=== PATIENT | male | born 1955 | race Caucasian/White ===

== ENCOUNTER 2021-12-24 08:56 | Inpatient (IN) | payer OTHER ==
--- NOTE | 2021-12-24 10:18 | RAD REPORT ---
EXAM DESCRIPTION: RAD - Hip Left 2 View - 12/24/2021 10:07 am CLINICAL HISTORY: Left hip pain status post injury FINDINGS: Increased density is present within the subcapital femur. It is uncertain if this indicate s an impaction fracture or related to degenerative changes. MRI is recommended. No dislocation Bones are osteoporotic
--- NOTE | 2021-12-24 15:22 | ER ---
Nurse's Notes [facility] Name: Luis Sarmiento Age: 66 yrs Sex: Male : 1955 Arrival Date: 12/24/2021 Time: 08:57 Bed 19 Private MD: Diagnosis: Intertrochanteric fracture - left Presentation: 12/24 09:29 Chief complaint: Patient states: left hip pain s/p fall from standing on Monday iw night. 09:29 Acuity: SANDHYA 4 iw 09:30 Coronavirus screen: At this time, the client does not indicate any symptoms associated iw with coronavirus-19. Ebola Screen: Patient negative for fever greater than or equal to 101.5 degrees Fahrenheit, and additional compatible Ebola Virus Disease symptoms Patient denies exposure to infectious person. Patient denies travel to an Ebola-affected area in the 21 days before illness onset. No symptoms or risks identified at this time. Initial Sepsis Screen: Does the patient meet any 2 criteria? No. Patient's initial sepsis screen is negative. Does the patient have a suspected source of infection? No. Patient's initial sepsis screen is negative. Risk Assessment: Do you want to hurt yourself or someone else? Patient reports no desire to harm self or others. Onset of symptoms was December 22, 2021. 09:30 Method Of Arrival: Wheelchair iw Triage Assessment: 09:33 General: Appears in no apparent distress. Behavior is calm, cooperative. bell Historical: - Allergies: 09:30 No Known Allergies; iw - Home Meds: 09:37 aspirin 325 mg Oral TbEC 1 tab once daily [Active]; bell - PMHx: 09:30 None; iw - PSHx: 09:30 None; iw - Immunization history:: Adult Immunizations up to date. - Social history:: Smoking status: Patient reports the use of cigarette tobacco products, smokes one pack cigarettes per day. Smoking status: Patient denies any tobacco usage or history of. Screenin:32 Abuse screen: Denies threats or abuse. Denies injuries from another. Nutritional bell screening: No deficits noted. Tuberculosis screening: No symptoms or risk factors identified. Fall Risk Assessment: 09:32 Pain: Complains of pain in left hip and left leg. Musculoskeletal: Reports pain in bell pelvis Pain is 7 out of 10 on a pain scale. 19:17 General: Appears uncomfortable, slender, well groomed, well developed, well nourished, tw5 Behavior is calm, cooperative, appropriate for age. 22:05 Pain: Complains of pain in left hip Pain does not radiate. Pain currently is 8 out of tw5 10 on a pain scale. Quality of pain is described as sharp, Pain began 2-3 days ago. Neuro: Level of Consciousness is awake, alert, obeys commands, Oriented to person, place, time, situation, Appropriate for age Fishing Rod Marker are equal bilaterally Weakness in left leg(s) Gait is unsteady, Speech is normal, Facial symmetry appears normal, Pupils are PERRLA. Cardiovascular: Capillary refill < 3 seconds is brisk in bilateral fingers toes. Respiratory: Airway is patent Respiratory effort is even, unlabored, Respiratory pattern is regular, symmetrical, Breath sounds are clear bilaterally. GI: No deficits noted. No signs and/or symptoms were reported involving the gastrointestinal system. : No deficits noted. No signs and/or symptoms were reported regarding the genitourinary system. EENT: No deficits noted. No signs and/or symptoms were reported regarding the EENT system. Derm: No deficits noted. No signs and/or symptoms reported regarding the dermatologic system. Vital Signs: 09:33 BP 164 / 83; Pulse 75; Resp 18; Temp 97.9(O); Pulse Ox 98% ; Weight 79.38 kg; Height 5 bell ft. 11 in. (180.34 cm); 09:34 BP 173 / 84; Pulse 77; Resp 16; Pulse Ox 100% on R/A; iw 11:24 BP 146 / 83; Pulse 66; Resp 18; Pulse Ox 95% on R/A; bell 18:46 BP 168 / 82; Pulse 69; Resp 18; Pulse Ox 95% on R/A; bell 09:33 Body Mass Index 24.41 (79.38 kg, 180.34 cm) bell ED Course: 08:57 Patient arrived in ED. am2 09:00 Juanita Castellon FNP-C is PHCP. kb 09:00 Axel Barrett MD is Attending Physician. kb 09:29 Triage completed. iw 09:31 Arm band placed on. iw 09:32 Patient has correct armband on for positive identification. Bed in low position. bell 09:32 No provider procedures requiring assistance completed. bell 10:09 Hip Left 2 View XRAY In Process Unspecified. EDMS 12:47 Sera Nguyen, RN is Primary Nurse. bell 14:48 Hip Left Wo Cont In Process Unspecified. EDMS 15:20 Thomas Flores MD is Hospitalizing Provider. kb 15:20 Darci Houser MD is Hospitalizing Provider. kb 15:55 Chest Single View XRAY In Process Unspecified. EDMS 17:41 Inserted saline lock: 20 gauge in left antecubital area, using aseptic technique. bell Administered Medications: No medications were administered Outcome: 15:21 Decision to Hospitalize by Provider. kb 21:57 Admitted to Med/surg accompanied by nurse, via wheelchair, room 215, with chart, Report tw5 called to ROBBIE Smiley 21:57 Condition: stable 21:57 Instructed on the need for admit. 23:16 Patient left the ED. tw5 Signatures: Dispatcher [employer] EDMS Juanita Castellon, MEDICAL OFFICE SUPERVISOR-C MEDICAL OFFICE SUPERVISOR-Ckb Melida Arora RN RN Enid Haq Tiffany tw5 Sera Nguyen RN RN Liseth Melendez tk1 Corrections: (The following items were deleted from the chart) 09:38 09:30 Home Meds: None; [facility] 22:07 19:17 General: Appears tk1 tw5
--- NOTE | 2021-12-24 15:22 | EDPHYS ---
Physician Documentation [facility] Name: Luis Sarmiento Age: 66 yrs Sex: Male : 1955 Arrival Date: 12/24/2021 Time: 08:57 Bed 19 Private MD: ED Physician Axel Barrett HPI: 12/24 10:42 This 66 yrs old Male presents to ER via Wheelchair with complaints of Fall Injury, Hip kb Pain. 10:42 Details of fall: The patient fell from an upright position, while walking. Onset: The kb symptoms/episode began/occurred 2 day(s) ago. Associated injuries: The patient sustained left hip, painful injury. Severity of symptoms: At their worst the symptoms were moderate, in the emergency department the symptoms are unchanged. The patient has not experienced similar symptoms in the past. The patient has not recently seen a physician. 10:43 Pt states he tripped and fell when taking the trash out 2 days ago. States he has had kb pain to left hip since then. Historical: - Allergies: 09:30 No Known Allergies; iw - Home Meds: 09:37 aspirin 325 mg Oral TbEC 1 tab once daily [Active]; bell - PMHx: 09:30 None; iw - PSHx: 09:30 None; iw - Immunization history:: Adult Immunizations up to date. - Social history:: Smoking status: Patient reports the use of cigarette tobacco products, smokes one pack cigarettes per day. Smoking status: Patient denies any tobacco usage or history of. ROS: 10:40 Constitutional: Negative for fever, chills, and weight loss. kb 10:40 MS/extremity: Positive for pain, of the left hip. 10:40 All other systems are negative. Exam: 10:41 Constitutional: This is a well developed, well nourished patient who is awake, alert, kb and in no acute distress. Head/Face: Normocephalic, atraumatic. ENT: Moist Mucous membranes Respiratory: Respirations even and unlabored. No increased work of breathing. Talking in full sentences Abdomen/GI: Soft, non-tender. No distention Skin: Warm, dry with normal turgor. Normal color. Neuro: Awake and alert, GCS 15, oriented to person, place, time, and situation. Moves all extremities. Normal gait. Psych: Awake, alert, with orientation to person, place and time. Behavior, mood, and affect are within normal limits. 10:41 Musculoskeletal/extremity: Extremities: grossly normal except: noted in the left hip: pain, tenderness, ROM: limited active range of motion due to pain, Circulation is intact in all extremities. Sensation intact. Weight bearing: can bear weight with assistance only, uses cane. Vital Signs: 09:33 BP 164 / 83; Pulse 75; Resp 18; Temp 97.9(O); Pulse Ox 98% ; Weight 79.38 kg; Height 5 bell ft. 11 in. (180.34 cm); 09:34 BP 173 / 84; Pulse 77; Resp 16; Pulse Ox 100% on R/A; iw 11:24 BP 146 / 83; Pulse 66; Resp 18; Pulse Ox 95% on R/A; bell 18:46 BP 168 / 82; Pulse 69; Resp 18; Pulse Ox 95% on R/A; bell 09:33 Body Mass Index 24.41 (79.38 kg, 180.34 cm) bell MDM: 09:21 Patient medically screened. kb 10:40 Data reviewed: vital signs, nurses notes. Data interpreted: Pulse oximetry: on room air kb is 100 %. Interpretation: normal. 15:18 Counseling: I had a detailed discussion with the patient and/or guardian regarding: the kb historical points, exam findings, and any diagnostic results supporting the discharge/admit diagnosis, radiology results, the need for further work-up and treatment in the hospital. Physician consultation: Thomas Flores MD was contacted at 15:18, regarding consult, patient's condition, and will see patient in inpatient room. 15:18 Physician consultation: Darci Houser MD was contacted at 15:19, regarding admission, kb to the medical/surgical unit. patient's condition, and will see patient in ED. 12/24 15:18 Order name: CBC with Diff; Complete Time: 15:50 kb 12/24 15:18 Order name: Basic Metabolic Panel; Complete Time: 16:02 kb 12/24 15:18 Order name: COVID-19 SARS RT PCR (Document "Date of Onset" if Symptomatic); Complete kb Time: 17:13 12/24 16:23 Order name: CBC with Automated Diff EDMS 12/24 16:23 Order name: CBC with Automated Diff EDMS 12/24 16:23 Order name: Comprehensive Metabolic Panel EDMS 12/24 09:24 Order name: Hip Left 2 View XRAY; Complete Time: 10:22 kb 12/24 10:26 Order name: Hip Left Wo Cont; Complete Time: 19:22 EDMS 12/24 15:18 Order name: EKG; Complete Time: 15:18 kb 12/24 15:18 Order name: Chest Single View XRAY; Complete Time: 17:48 kb 12/24 16:23 Order name: Heart Healthy; Complete Time: 18:13 EDMS 12/24 16:23 Order name: Comprehensive Metabolic Panel EDMS 12/24 16:25 Order name: CONS Physician Consult EDMS 12/24 16:25 Order name: Magnesium; Complete Time: 19:06 EDMS 12/24 15:18 Order name: IV Start; Complete Time: 15:36 kb 12/24 15:18 Order name: EKG - Nurse/Tech; Complete Time: 16:34 kb Administered Medications: No medications were administered Disposition: 12/25 09:02 Co-signature as Attending Physician, Axel Barrett MD. rn Disposition Summary: 12/24/21 15:21 Hospitalization Ordered Hospitalization Status: Inpatient Admission kb Provider: Darci Houser Location: Telemetry/MedSurg (Inpatient) kb Condition: Stable kb Problem: new kb Symptoms: are unchanged kb Bed/Room Type: Standard Room Assignment: [facility](12/24/21 21:19) Diagnosis - Intertrochanteric fracture - left kb Forms: - Medication Reconciliation Form kb - SBAR form kb Signatures: Dispatcher [employer] [facility] Juanita Castellon, RHEA-C STATION DETECTIVE-CkMelida Thomas, RN Axel Jones MD MD rn Garcia, Cindy, RN RN cg Au-Stager, Heather, RN RN ha Corrections: (The following items were deleted from the chart) 12/24 09:38 09:30 Home Meds: None; bell 21:19 15:21 kb cg
[2021-12-24 15:42] LABS: Absolute Lymphocytes (CBC) 1.6 K/uL (0.7-4.9); Hematocrit 44.7 % (39.6-49.0); MPV 8.1 fL (7.6-11.3)
[2021-12-24 15:54] LABS: BUN Blood Urea Nitrogen 8 mg/dL (7-18); Bicarbonate 28 mmol/L (21-32); Glucose Level 94 mg/dL (74-106); Potassium 4.5 mmol/L (3.5-5.1); Sodium Level 137 mmol/L (136-145)
[2021-12-24] MEDS ORDERED: ALBUTEROL 2.5 MG/3 ML NEB SOL NEB PRN (16:06)
[2021-12-24] MEDS ORDERED: ACETAMINOPHEN 500 MG TAB PO PRN (16:06)
[2021-12-24] MEDS ORDERED: ONDANSETRON 4 MG/2 ML VIAL IV PRN (16:06)
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
[2021-12-24] MEDS ORDERED: HYDRALAZINE HCL 20 MG/ML VIAL IV PRN (16:19)
[2021-12-24] MEDS ORDERED: LORazepam 2 MG/ML VIAL IV PRN (16:20)
--- NOTE | 2021-12-24 17:43 | RAD REPORT ---
EXAM DESCRIPTION: RAD - Chest Single View - 12/24/2021 3:53 pm CLINICAL HISTORY: preopchest exam, hip fracture pending surgical repair COMPARISON: September 2013 TECHNIQUE: AP portable chest image was obtained 12/24/2021 3:53 pm . FINDINGS: Scattered fibrotic lung changes are present with no worrisome mass and no acute infiltrate , failure or volume overload finding. Two small nodular foci are seen symmetrically positioned over t he lower chest believed to be nipple shadows. Heart and vasculature are normal. No measurable pleural effusion and no pneumothorax. No acute bony abnormality seen. No acute aortic findings suspected. IMPRESSION: Chronic interstitial pattern with no acute cardiopulmonary finding identified.
--- NOTE | 2021-12-24 19:15 | RAD REPORT ---
EXAM DESCRIPTION: MRI - Hip Left Wo Cont - 12/24/2021 6:27 pm CLINICAL HISTORY: r/o fx COMPARISON: Hip Left 2 View dated 12/24/2021 TECHNIQUE: Multiplanar imaging of the left hip joint and pelvis performed using T1 weighted, T2 STIR , proton density and T2 fat sat sequencing. FINDINGS: Serpiginous fracture lines traverse the greater trochanter in a predominantly craniocaudal dimension. There is cortical disruption present but no significant distraction along the fracture pl anes. Fracture lines that extend into the central portion of the intertrochanteric region. Thin serpi ginous fracture lines extend anteriorly in their intertrochanteric region to the anterior cortex and posterior cortex. Fracture of the femoral neck or subcapital region is not identifiable. Lesser trochanter remains enriqueta ched to the femur. No pathologic changes. Contusion and edema changes are seen in the soft tissues ad jacent to the greater trochanter. Degenerative spurring seen along the articular margins of the acetabulum and femoral head. No joint e ffusion. Fracture is not seen in the imaged portions of the pelvis. Signal artifact is present related to right femur surgical hardware. Final written report was delayed due to malfunctioning of the PACs IT systems. Imaging was reviewed o jaron the MRI suite monitor with preliminary verbal report telephoned to the referring clinician at the time of the study as well as reviewed with the consulting orthopedist. IMPRESSION: Left greater trochanter and intertrochanteric fractures as detailed.
[2021-12-24] MEDS ORDERED: FAMOTIDINE 20 MG TAB ONE (20:50)
[2021-12-24] MEDS ORDERED: HEPARIN 5000 UNIT/ML 1 ML VIAL ONE (20:50)
[2021-12-24] MEDS ORDERED: NA CHLORIDE 0.9% 1,000 ML ONE (20:50)
[2021-12-24] MEDS: HEPARIN 5000 UNIT/ML 1 ML VIAL SQ SCH ×2 (20:55→23:56)
[2021-12-24] MEDS: NA CHLORIDE 0.9% 1,000 ML IV SCH (20:55)
[2021-12-24] MEDS: FAMOTIDINE 20 MG TAB PO SCH (21:00)
[2021-12-24] MEDS: Oxycodone HCl/Acetaminophen 1 TAB TAB PO PRN (21:00)
[2021-12-24] MEDS ORDERED: Oxycodone HCl/Acetaminophen 1 TAB TAB ONE (21:06)
[2021-12-24] MEDS: MORPHINE 4 MG/ML SYR IV PRN (23:52)
[2021-12-25 02:54] VITALS: BMI 24.4
[2021-12-25] MEDS: MORPHINE 4 MG/ML SYR IV PRN ×3 (04:24→20:05)
--- NOTE | 2021-12-25 04:53 | CON ---
Date of Consultation: 12/24/2021 History Of Present Illness: This is my first time seeing this patient to my knowledge. He is a 66-y ear-old male, who unfortunately fell on Monday injuring his left hip. He had significant pain whe n that happened and he has had persistent pain. He has tried to walk around a little bit with very s ignificant pain. It was hurting so much that he finally decided to come to the emergency department. When he came to the emergency department, he was seen and examined by the emergency room physician and had x-rays, which demonstrated some arthritic changes of the left hip and the initial x-ray marixa watson said there is a possibility he could have a small impaction of the femoral neck. He was therefore sent for MR, which demonstrates a fairly obvious greater trochanteric fracture on MR, however there does appear to be fracture lines, which proceed more medially, not actually crossing across the entir e femur to the lesser trochanter, but definitely more extensive than a simple greater trochanteric fr acture. Assessment And Plan: A 66-year-old male now with a left hip with arthritis with a greater trochanter ic fracture, which appears to extend in the intertrochanteric region. I discussed this situation wit h both the patient and the family and at this time we will proceed with closed reduction, intramedull amara delfino fixation most likely tomorrow. He will be admitted to the hospitalist and will need to be me dically evaluated. He was getting an EKG while I was in the room. I will speak with the [place] [facility]. Risks, benefits, and alternatives of this procedure have been discussed with him and his fami ly in detail. They state they understand things as presented. /CARLOS Voice ID: [id number] Report ID: [id number]
[2021-12-25] MEDS: Oxycodone HCl/Acetaminophen 1 TAB TAB PO PRN ×2 (05:39→12:14)
[2021-12-25] MEDS: NA CHLORIDE 0.9% 1,000 ML IV SCH (06:05)
[2021-12-25 06:08] LABS: Absolute Lymphocytes (CBC) 1.4 K/uL (0.7-4.9); Hematocrit 42.4 % (39.6-49.0); Lymphocytes % 23.9 % (15.3-44.8); MPV 8.6 fL (7.6-11.3); RBC Red Blood Cell Count 4.36 M/uL (4.33-5.43)
--- NOTE | 2021-12-25 06:12 | P.PN ---
Date of Service: 12/25/21 Subjective: s/p surgery, in severe pain denies SOB, no n/v, no abd pain passing flatus ROS: 10 point ROS as noted above, otherwise negative Physical exam GEN: Alert, oriented, uncomfortable appearing HEENT: Normal conjunctiva, sclera anicteric CV: Regular rate and rhythm, no edema Pulm: Non-labored respirations on room air ABD: Soft, nontender, nondistended MSK: LLE: Surgical dressing c/d/i, no palpable fluid collection/hematoma, no ecchymosis Neuro: Normal speech, normal affect Problem List Left femoral neck fracture after fall Chronic tobacco use Chronic alcohol use s/p ORIF this morning without complication post-operatively, patient reports 10/10 pain in thigh Denies nausea/vomiting With elevated blood pressure, secondary to pain Lab work otherwise unremarkable Pain medication as needed Resume diet Discussed with Ortho, okay to start DVT prophylaxis daniella Xarelto ordered PT consulted VTE: Xarelto, DVT prophylaxis Code: Full Dispo: Home, anticipate tomorrow Time Spent Managing Pts Care (In Minutes): 35
[2021-12-25 06:15] LABS: ALT/SGPT 98 U/L (12-78); AST/SGOT 93 U/L (15-37); Albumin 3.2 g/dL (3.4-5.0); Alkaline Phosphatase 99 U/L (45-117); BUN Blood Urea Nitrogen 9 mg/dL (7-18); Bicarbonate 28 mmol/L (21-32); Bilirubin Total 1.1 mg/dL (0.2-1.0); Glucose Level 91 mg/dL (74-106); Potassium 4.3 mmol/L (3.5-5.1); Protein, Total 7.3 g/dL (6.4-8.2); Sodium Level 137 mmol/L (136-145)
[2021-12-25] MEDS ORDERED: SUCCINYLCHOLINE 20 MG/ML (10 ML) IV ONE (07:56)
[2021-12-25] MEDS ORDERED: FENTANYL CITR 100 MCG/2 ML ONE (07:58)
[2021-12-25] MEDS ORDERED: propofoL 200 MG/20 ML VIAL IV ONE (07:58)
[2021-12-25] MEDS ORDERED: MIDAZOLAM HCL 2 MG/2 ML INJ ONE (07:58)
[2021-12-25] MEDS ORDERED: CEFAZOLIN SODIUM 1 GM/VIAL ONE (07:59)
[2021-12-25] MEDS ORDERED: TRANEXAMIC ACID 1,000 MG in NA CHLORIDE 0.9% 50 ML IV ONE ×4 (08:00)
[2021-12-25] MEDS ORDERED: GLYCOPYRROLATE 0.2 MG/ML SYR ONE (08:51)
[2021-12-25] MEDS: HEPARIN 5000 UNIT/ML 1 ML VIAL SQ SCH (09:00)
[2021-12-25] MEDS: MEPERIDINE HCL 25 MG/ML SYR ONE ×2 (09:20→09:45)
--- NOTE | 2021-12-25 09:23 | P.BOP ---
Preoperative diagnosis: left proximal femur fracture Postoperative diagnosis: same Primary procedure: Bebo left femur Estimated blood loss: 20 ccs Anesthesia: General Complications: None Transferred to: Recovery Room Condition: Good
[2021-12-25] MEDS: FENTANYL CITR 100 MCG/2 ML ONE ×3 (09:25→09:55)
[2021-12-25] MEDS ORDERED: ONDANSETRON 4 MG/2 ML VIAL ONE (09:27)
[2021-12-25 09:54] VITALS: O2SAT 97
--- NOTE | 2021-12-25 10:20 | OP ---
Date of Procedure: 12/25/2021 Surgeon: Thomas Flores MD Postoperative Diagnosis: Left proximal femur fracture. Postoperative Diagnosis: Left proximal femur fracture. Procedure Performed: Left proximal femur fracture closed reduction with intramedullary delfino fixation using the Biomet AFFIXUS nail. Estimated Blood Loss: 20 cc. Complications: There were no complications. No pathology was sent. Indications For Operation: Mr. Sarmiento is a 66-year-old male who unfortunately fell injuring his lef t hip. He attempted to treat this at home; however, his pain never decreased and he really was not a ble to bear any weight. He was brought to the emergency department where x-rays were taken, which de monstrate some arthritic changes of the hip as well as some rim osteophytes, which Radiology could re present a nondisplaced fracture. Therefore, an MRI was obtained, which did not reveal a femoral neck fracture, but did not reveal a fracture of the greater trochanter with a fracture line, which goes i nto the intertrochanteric region. I am called to see him. On physical examination, he complains of pain in the left hip with any movement or manipulation. Review of x-rays do reveal this fracture gaston e, which moves into the intertrochanteric area. At this time risks, benefits, and alternatives of di fferent methods of treating this have been discussed with the patient and family. They state they un derstand things as presented and wished to proceed with stabilization to avoid further propagation or overt failure. Procedure In Detail: The patient was taken to the operating room, placed in the supine position. Ge neral anesthesia was obtained by the staff. Following this, he was then placed on the fracture table with all of his bony prominences being checked. He was then secured on the fracture table and C-arm was brought in to ensure there has been no further displacement of the fracture and it does appear t o be nondisplaced. After this, the left lower extremity was than prepped and draped in usual sterile fashion for this procedure. An incision was made just superior to the greater trochanter. This was taken down carefully through skin and soft tissues, meticulous hemostasis being maintained using Bov ie electrocautery. A small stab wound was made in the fascia and the greater trochanter was palpated . A starting point was made just medial to the greater trochanter using the starting awl. This proc eeds down to the femoral shaft. The guide pin was then placed without difficulty. After this, the h and reamer was then used to expand this past the left stroke. A size 9 130-degree delfino is selected an d placed at appropriate depth. The cephalomedullary screw was then placed in standard fashion. This was followed by placement of an anterior rotation screw to afford better stability as most likely we will allow weightbearing quite quickly because of the nondisplaced nature of the fracture. Generall y, the decision was made to place the distal interlock and this was placed in standard fashion with t he only exception being as the screw nearly traverses the far cortex. It becomes extremely difficult to advance. I was having to place enough torque on it. I was concerned that it may lead to the stri pping of the screw or perhaps even a screw breakage as the bone is quite hard in this area and it was quite difficult to advance. Decision was made to it does have very good bicortical fixat ion. It does stick out a slight amount, which is a little safer because of his concern that the scre w could break, but also could be of benefit for removal of the screw because there was an attempt to remove the screw drill or use the screw as a self tap to allow for better advancement with clearing of some bony debris. However, it was also similarly very difficult to use the screwdriver to back it out and pliers could be used if needed to remove the screw at this time, I do know that he is somewhat thin and this could be slightly prominent; however, it is felt that this is the best wai gment regarding the screw as it is definitely going to do its job. Following this, the wounds were i rrigated, the fascia was closed in a watertight fashion using heavy Vicryl sutures, followed by closu re of skin using Vicryl and tasha. The patient was then placed in Aquacel dressing, awakened, take n to the recovery room in good condition. No complications. SE/MODL Voice ID: [id number] Report ID: [id number]
[2021-12-25] MEDS: NICOTINE 21 MG/PAT TD SCH (10:46)
[2021-12-25] MEDS: FAMOTIDINE 20 MG TAB PO SCH ×2 (10:46→20:05)
[2021-12-25] MEDS: HYDROCODONE/APAP 7.5/325 MG TAB PO PRN ×2 (16:35→22:42)
[2021-12-25] MEDS ORDERED: RIVAROXABAN 10 MG TABLET PO SCH (17:00)
--- NOTE | 2021-12-25 20:37 | RAD REPORT ---
EXAM DESCRIPTION: RAD - Hip Left 2 View - 12/25/2021 8:15 pm CLINICAL HISTORY: LEFT HIP SANDRINE WITH DOCTOR ANALI COMPARISON: Left hip December 24, MRI left hip December 24 FINDINGS: There were 45 portable C-arm views obtained during fluoroscopic assisted placement of frac ture fixation hardware. Images show stepwise placement of the hardware. No unexpected finding. Fluoro time was 1.0 minutes. Cumulative dose was 7.32 mGy.
[2021-12-26] MEDS: MORPHINE 4 MG/ML SYR IV PRN (00:06)
--- NOTE | 2021-12-26 06:54 | P.PN ---
Date of Service: 12/26/21 Subjective: ROS: 10 point ROS as noted above, otherwise negative Physical exam GEN: Alert, oriented, uncomfortable appearing HEENT: Normal conjunctiva, sclera anicteric CV: Regular rate and rhythm, no edema Pulm: Non-labored respirations on room air ABD: Soft, nontender, nondistended MSK: LLE: Surgical dressing c/d/i, no palpable fluid collection/hematoma, no ecchymosis Neuro: Normal speech, normal affect Problem List Left femoral neck fracture after fall Chronic tobacco use Chronic alcohol use s/p ORIF this morning without complication post-operatively, patient reports 10/10 pain in thigh Denies nausea/vomiting With elevated blood pressure, secondary to pain Lab work otherwise unremarkable Pain medication as needed Resume diet Discussed with Ortho, okay to start DVT prophylaxis Dayne brewer ordered PT consulted VTE: Xarelto, DVT prophylaxis Code: Full Dispo: Home, anticipate tomorrow Time Spent Managing Pts Care (In Minutes): 35
[2021-12-26] MEDS: FAMOTIDINE 20 MG TAB PO SCH (08:22)
[2021-12-26] MEDS: NICOTINE 21 MG/PAT TD SCH (08:22)
[2021-12-26] MEDS: HYDROCODONE/APAP 7.5/325 MG TAB PO PRN (08:27)
--- NOTE | 2021-12-26 09:24 | PN ---
Date of Progress Note: 12/26/2021 Subjective: The patient is seen today. He is resting fairly comfortably in bed. His dressing is cl carmelita, dry, and intact. He is neurovascularly intact. He has no significant complaints. Assessment: Doing well, status post left femur fracture with intramedullary delfino. I believe that he can be partial weightbearing, anticoagulation for 3 weeks followed by aspirin for 3 weeks, changing d ressing only as needed. We will see him back in our office 2 weeks from time of surgery or sooner wi th problems. All his questions have otherwise been answered. /CARLOS Voice ID: [id number] Report ID: [id number]
--- NOTE | 2021-12-26 09:50 | P.DS ---
Admission Date: 12/24/21 Discharge Date: 12/26/21 Disposition: ROUTINE DISCHARGE Discharge Condition: FAIR Reason for Admission: Left hip pain Brief History of Present Illness: Patient is 66 years of age admitted with fracture of the left proximal humerus Hospital Course: He was admitted and underwent surgical fixation as stated below did well at the time of discharge he was alert oriented responsive and controlled by Dr. Flores vital signs all stable no complications ambulating : Left proximal femur fracture closed reduction with intramedullary delfino fixation using the Biomet AFFIXUS nail. To be discharged home on Tylenol with codeine he is to take Xarelto for 3 weeks followed by aspirin as per Dr. Flores follow-up with him in 2-week Vital Signs/Physical Exam: Temp Pulse Resp BP Pulse Ox 97.5 F 65 16 143/71 H 97 12/26/21 04:00 12/26/21 04:00 12/26/21 08:27 12/26/21 04:00 12/26/21 08:27 Laboratory Data at Discharge: WBC 5.7 K/uL (4.3-10.9) 12/25/21 05:03 Hgb 14.3 g/dL (13.6-17.9) 12/25/21 05:03 Hct 42.4 % (39.6-49.0) 12/25/21 05:03 Plt Count 142 K/uL (152-406) L 12/25/21 05:03 Sodium 137 mmol/L (136-145) 12/25/21 05:03 Potassium 4.3 mmol/L (3.5-5.1) 12/25/21 05:03 BUN 9 mg/dL (7-18) 12/25/21 05:03 Creatinine 0.65 mg/dL (0.55-1.3) 12/25/21 05:03 Glucose 91 mg/dL (74-106) 12/25/21 05:03 Magnesium 2.1 mg/dL (1.8-2.4) 12/24/21 15:30 Total Bilirubin 1.1 mg/dL (0.2-1.0) H 12/25/21 05:03 AST 93 U/L (15-37) H 12/25/21 05:03 ALT 98 U/L (12-78) H 12/25/21 05:03 Alkaline Phosphatase 99 U/L (45-117) 12/25/21 05:03 Home Medications: Aspirin [Aspirin EC 325 MG] 325 mg PO DAILYPRN PRN 12/24/21 Codeine/APAP [Tylenol W/Codeine #3 tab] 1 tab PO Q6HP PRN #20 tab 12/26/21 Rivaroxaban [Xarelto] 10 mg PO DAILY #21 tablet 12/26/21 New Medications: Codeine/APAP [Tylenol W/Codeine #3 tab] 1 tab PO Q6HP PRN #20 tab PRN Reason: Pain Rivaroxaban [Xarelto] 10 mg PO DAILY #21 tablet Physician Discharge Instructions: Follow up with Dr. Flores in 2 weeks patient to take Xarelto for 3 weeks followed by aspirin Diet: Regular Activity: Ad rosie Followup: NONE,NONE [Primary Care Provider] -
[2021-12-26 10:34] VITALS: BP 166/79; TEMP 98.9
--- NOTE | 2021-12-27 11:19 | EKG ---
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
== END 2021-12-26 12:04 | disposition home or self-care (01) | DRG 482 ==
LOC: ER 08:56 → ERHOLD 16:07 → 2ND 22:38
PROVIDERS: ADMIT Hospitalist; ATTEND Hospitalist
PROC: 0QS736Z Reposition Left Upper Femur with Intramedullary Internal Fixation Device, Percutaneous Approach (ICD-10-PCS; principal; 2021-12-25 08:00)
DX: S72.142A Displaced intertrochanteric fracture of left femur, initial encounter for closed fracture (principal); F10.10 Alcohol abuse, uncomplicated; M16.12 Unilateral primary osteoarthritis, left hip; F17.210 Nicotine dependence, cigarettes, uncomplicated; W18.30XA Fall on same level, unspecified, initial encounter; Z79.01 Long term (current) use of anticoagulants; Z79.82 Long term (current) use of aspirin; Z20.822 Contact with and (suspected) exposure to COVID-19
CPT/HCPCS: 36415; 71045; 80048; 80053; 83735; 85025; 93005; 97161; 99285; J0330; J0690; J1644; J2175; J2250; J2405; J2704; J3010; J7030; U0003

== ENCOUNTER 2025-04-30 18:58 | Emergency (ER) | payer OTHER ==
--- OUTSIDE RECORDS SUMMARY | 2025-04-30 19:03 | XMS REPORT | Continuity of Care Document ---
Author Name Unknown Address [address] [facility] [address] [place] [address] [facility] [address] [facility] 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 Ordering Clinician Indication Dosage Frequency Signature (SIG) Comments Components Source lisinopril 20 mg tablet - 00:00: 00 Yes 1mg Dany Cook amlodipine 10 mg tablet - 00:00: 00 Yes 1mg Dany Cook hydrochloro thiazide 25 mg tablet 3- 00:00: 00 Yes 1mg Dany F Joey hydrochloro thiazide 25 mg tablet 2- 00:00: 00 Yes 1mg Dany Cook lisinopril 20 mg tablet 2023-09 2- 00:00: 00 Yes 1mg Dany F Joey lisinopril 20 mg tablet 2023-09 2- 00:00: 00 Yes 1mg Dany F Joey lisinopril 20 mg tablet 2023-09 2- 00:00: 00 Yes 1mg Dany F Joey amlodipine 10 mg tablet 2023-09- 00:00: 00 Yes 1mg Dany F Joey lisinopril 10 mg tablet 2023-09-18 00:00: 00 Yes 1mg Dany F Joey hydrochloro thiazide 25 mg tablet 2023-09-18 00:00: 00 Yes 1mg Dany F Joey amlodipine 10 mg tablet - 00:00: 00 Yes 1mg Dany F Joey hydrochloro thiazide 25 mg tablet 8- 00:00: 00 Yes 1mg Dany F Joey hydrochloro thiazide 25 mg tablet 8-08 00:00: 00 Yes 1mg Dany Cook amlodipine 10 mg tablet 7-02 00:00: 00 Yes 1mg Dany Cook hydrochloro thiazide 12.5 mg tablet 7-02 00:00: 00 Yes 1mg Dany Cook Norvasc 10 mg tablet 5-06 00:00: 00 Yes 1mg Dany Cook TAKE 1 TABLET DAILY. 3-14 00:00: 00 Yes 10 Dany Cook TAKE 1 TABLET DAILY. 2022-09 0-05 00:00: 00 01-28 00:00 :00 No 10 Dany Cook TAKE 1 TABLET DAILY. 7-31 00:00: 00 01-28 00:00 :00 No 10 Dany Cook TAKE 1 TABLET DAILY. 6-29 00:00: 00 01-28 00:00 :00 No 5 Dany Cook Immunizations Ordered Immunization Name Filled Immunization Name Date Status Comments Source Prevnar 20 Prevnar 20 2024-12-17 00:00:00 Completed Dany Cook Vital Signs Vital Name Observation Time Observation Value Comments S reychristie BP Systolic 2024-12-17 14:45:00 149 mm[Hg] Haile hen Seth Cook BP Diastolic 2024-12-17 14:45:00 69 mm[Hg] Wang phen Seth Cook Weight Measured 2024-12-17 14:45:00 138.40 pounds Dany Cook Height Measured 2024-12-17 14:45:00 70.00 inches Dany Cook Body Temperature 2024-12-17 14:45:00 98.90 degrees Dany Cook Heart Rate 2024-12-17 14:45:00 61.00 /min Kerry en F Joey Respiratory Rate 2024-12-17 14:45:00 17.00 /min Dany Cook BP Systolic 2024-09-16 16:38:00 163 mm[Hg] Haile Cook BP Diastolic 2024-09-16 16:38:00 78 mm[Hg] Wang phen Seth Cook Weight Measured 2024-09-16 16:38:00 133.60 pounds Dany Cook Height Measured 2024-09-16 16:38:00 70.00 inches Dany F Joey Body Temperature 2024-09-16 16:38:00 98.60 degrees Dany F Joey Heart Rate 2024-09-16 16:38:00 81.00 /min Kerry en F Joey Respiratory Rate 2024-09-16 16:38:00 18.00 /min Dany F Joey BP Systolic 2024-08-26 15:57:00 170 mm[Hg] Step hen F Joey BP Diastolic 2024-08-26 15:57:00 82 mm[Hg] Wang phen F Joey Weight Measured 2024-08-26 15:57:00 136.80 pounds Dany F Joey Height Measured 2024-08-26 15:57:00 70.00 inches Dany F Joey Body Temperature 2024-08-26 15:57:00 99.20 degrees Dany F Joey Heart Rate 2024-08-26 15:57:00 84.00 /min Kerry en F Joey Respiratory Rate 2024-08-26 15:57:00 18.00 /min Dany F Joey BP Systolic 2024-08-12 11:06:00 167 mm[Hg] Step hen F Joye BP Diastolic 2024-08-12 11:06:00 77 mm[Hg] Wang phen F Joey Weight Measured 2024-08-12 11:06:00 133.80 pounds Dany F Joey Height Measured 2024-08-12 11:06:00 70.00 inches Dany F Joey Body Temperature 2024-08-12 11:06:00 98.60 degrees Dany F Joey Heart Rate 2024-08-12 11:06:00 80.00 /min Kerry en F Joey Respiratory Rate 2024-08-12 11:06:00 18.00 /min Dany F Joey BP Systolic 2024-05-13 11:24:00 152 mm[Hg] Step hen F Joey BP Diastolic 2024-05-13 11:24:00 78 mm[Hg] Wang phen F Joey Weight Measured 2024-05-13 11:24:00 133.60 pounds Dany F Joey Height Measured 2024-05-13 11:24:00 70.00 inches Dany F Joey Body Temperature 2024-05-13 11:24:00 98.50 degrees Dany F Joey Heart Rate 2024-05-13 11:24:00 85.00 /min Kerry en F Joey Respiratory Rate 2024-05-13 11:24:00 18.00 /min Dany F Joey BP Systolic 2024-05-02 17:31:00 179 mm[Hg] Step hen F Joey BP Diastolic 2024-05-02 17:31:00 79 mm[Hg] Wang phen F Joey Weight Measured 2024-05-02 17:31:00 135.20 pounds Dany F Joey Height Measured 2024-05-02 17:31:00 70.00 inches Dany F Joey Body Temperature 2024-05-02 17:31:00 98.20 degrees Dany F Ojey Heart Rate 2024-05-02 17:31:00 88.00 /min Kerry en F Joey Respiratory Rate 2024-05-02 17:31:00 18.00 /min Dany F Joey BP Diastolic 2024-03-26 15:32:00 80 mm[Hg] Wang phen F Joey Weight Measured 2024-03-26 15:32:00 130.60 pounds Dany F Joey Height Measured 2024-03-26 15:32:00 70.00 inches Dany F Joey Body Temperature 2024-03-26 15:32:00 98.10 degrees Dany F Joey Heart Rate 2024-03-26 15:32:00 18.00 /min Kerry en F Joey Respiratory Rate 2024-03-26 15:32:00 19.00 /min Dany F Joey BP Systolic 2024-03-26 15:32:00 171 mm[Hg] Step hen F Joey BP Systolic 2023-06-29 15:16:00 160 mm[Hg] Step hen F Joey BP Diastolic 2023-06-29 15:16:00 80 mm[Hg] Wang phen F Joey Weight Measured 2023-06-29 15:16:00 142.60 pounds Dany F Joey Height Measured 2023-06-29 15:16:00 70.00 inches Dany F Joey Body Temperature 2023-06-29 15:16:00 98.20 degrees Dany F Joey Heart Rate 2023-06-29 15:16:00 74.00 /min Kerry en F Joey Respiratory Rate 2023-06-29 15:16:00 19.00 /min Dany F Joey BP Systolic 2023-04-24 16:04:00 186 mm[Hg] Step hen F Joey BP Diastolic 2023-04-24 16:04:00 93 mm[Hg] Wang phen F Joey Weight Measured 2023-04-24 16:04:00 139.80 pounds Dany F Joey Height Measured 2023-04-24 16:04:00 70.00 inches Dany F Joey Body Temperature 2023-04-24 16:04:00 98.50 degrees Dany F Joey Heart Rate 2023-04-24 16:04:00 91.00 /min Kerry en F Joey Respiratory Rate 2023-04-24 16:04:00 18.00 /min Dany F Joey BP Systolic 2023-03-23 09:55:00 185 mm[Hg] Step hen F Joey BP Diastolic 2023-03-23 09:55:00 94 mm[Hg] Wang phen F Joey Weight Measured 2023-03-23 09:55:00 142.20 pounds Dany F Joey Height Measured 2023-03-23 09:55:00 70.00 inches Dany F Joey Body Temperature 2023-03-23 09:55:00 98.20 degrees Dany F Joey Heart Rate 2023-03-23 09:55:00 84.00 /min Kerry en F Joey Respiratory Rate 2023-03-23 09:55:00 19.00 /min Dany F Joey BP Systolic 2023-03-23 09:45:00 185 mm[Hg] Step hen F Joey BP Diastolic 2023-03-23 09:45:00 94 mm[Hg] Wang phen F Joey Weight Measured 2023-03-23 09:45:00 142.20 pounds Dany F Joey Height Measured 2023-03-23 09:45:00 70.00 inches Dany F Joey Body Temperature 2023-03-23 09:45:00 98.20 degrees Dany F Joey Heart Rate 2023-03-23 09:45:00 84.00 /min Kerry en F Joey Respiratory Rate 2023-03-23 09:45:00 19.00 /min Dany F Joey Encounters Start Date/Time End Date/Time Encounter Type Admission Type Attending [facility] Care Department Encounter ID Source 2024-12-25 13:52:33 2024-12-25 13:52:33 Outpatient SFA SFA [id number] Dany Cook 2024-12-24 00:00:00 2024-12-24 00:00:00 Outpatient Visit SFA [id number] Dany Cook 2024-12-17 14:40:45 2024-12-17 14:40:45 Outpatient SFA SFA [id number] Dany Cook 2024-12-17 00:00:00 2024-12-17 00:00:00 Outpatient Visit SFA [id number] Dany Cook 2024-09-16 16:32:49 2024-09-16 16:32:49 Outpatient SFA SFA [id number] Dany Cook 2024-09-16 00:00:00 2024-09-16 00:00:00 Outpatient Visit SFA [id number] Dany Cook 2024-08-26 15:50:08 2024-08-26 15:50:08 Outpatient SFA SFA [id number] Dany Cook 2024-08-26 00:00:00 2024-08-26 00:00:00 Outpatient Visit SFA [id number] Dany Cook 2024-08-12 10:55:49 2024-08-12 10:55:49 Outpatient SFA SFA [id number] Dany Cook 2024-08-12 00:00:00 2024-08-12 00:00:00 Outpatient Visit SFA [id number] Dany Cook 2024-05-13 11:22:25 2024-05-13 11:22:25 Outpatient SFA SFA [id number] Dany Cook 2024-05-13 00:00:00 2024-05-13 00:00:00 Outpatient Visit SFA [id number] Dany Cook 2024-05-02 17:31:03 2024-05-02 17:31:03 Outpatient SFA SFA [id number] Dany Cook 2024-05-02 00:00:00 2024-05-02 00:00:00 Outpatient Visit SFA [id number] Dany Cook 2024-03-26 15:26:55 2024-03-26 15:26:55 Outpatient SFA SFA [id number] Dany Cook 2024-03-26 00:00:00 2024-03-26 00:00:00 Outpatient Visit SFA [id number] Dany Cook 2023-06-29 15:12:00 2023-06-29 15:12:00 Outpatient SFA SFA [id number] Dany Cook 2023-06-29 00:00:00 2023-06-29 00:00:00 Outpatient Visit SFA [id number] Dany Cook 2023-05-04 14:31:15 2023-05-04 14:31:15 Outpatient SFA SFA [id number] Dany Cook 2023-04-28 15:49:55 2023-04-28 15:49:55 Outpatient SFA SFA [id number] Dany Ann Joey 2023-04-24 15:52:45 2023-04-24 15:52:45 Outpatient SFA SFA [id number] Dany Cook 2023-04-24 00:00:00 2023-04-24 00:00:00 Outpatient Visit SFA [id number] Dany Cook 2023-03-23 09:37:43 2023-03-23 09:37:43 Outpatient [facility] [id number] Dany Cook 2023-03-23 00:00:00 2023-03-23 00:00:00 Outpatient Visit [facility] [id number] Dany Cook Results Test Description Test Time Test Comments Results Result Co mments Source Dany CookLIPID [id number] 00:00:00* Test Item Value Reference Range Interpretation Comme nts CHOLESTEROL, TOTAL (test cod e = 2093-3) 142 mg/dL HDL CHOLESTEROL (test code = 2085-9) 75 mg/dL TRIGLYCERIDES (test code = 2571-8) 62 mg/dL LDL-CHOLESTEROL (test code = 34458-8) 53 mg/dL(calc) CHOL/HDLC RATIO (test code = 9830-1) 1.9 (calc) NON HDL CHOLESTEROL (test co de = 71272-1) 67 mg/dL(calc) Dany CookPROTHROMBIN [id number] 00:00:00* Test Item Value Reference Range Interpretation Comme nts INR (test code = 6301-6) 1.0 PT (test code = 5902-2) 11.3 sec Dany CookALPHA FETOPROTEIN, TUMOR [id number] 00:00:00* Test Item Value Reference Range Interpretation Comme nts ALPHA FETOPROTEIN, TUMOR MAR KER (test code = 42822-9) 9.0 ng/mL Dany CookCBC (INCLUDES DIFF/PLT)2024-12-21 00:00:00* Test Item Value Reference Range Interpretation Comme nts WHITE BLOOD CELL COUNT (test code = 6690-2) 6.1 Thousand/uL RED BLOOD CELL COUNT (test code = 789-8) 3.81 Million/uL HEMOGLOBIN (test code = 718-7) 13.3 g/dL HEMATOCRIT (test code = 4544-3) 38.0 % MCV (test code = 787-2) 99.7 fL MCH (test code = 785-6) 34.9 pg MCHC (test code = 786-4) 35.0 g/dL RDW (test code = 788-0) 12.1 % PLATELET COUNT (test code = 777-3) 194 Thousand/uL MPV (test code = 776-5) 9.1 fL ABSOLUTE NEUTROPHILS (test code = 751-8) 4496 cells/uL ABSOLUTE BAND NEUTROPHILS (test code = 36909-7) DNR cells/uL ABSOLUTE METAMYELOCYTES (twan t code = 44267-0) DNR cells/uL ABSOLUTE MYELOCYTES (test code = 19232-8) DNR cells/uL ABSOLUTE PROMYELOCYTES (test code = 01273-1) DNR cells/uL ABSOLUTE LYMPHOCYTES (test code = 731-0) 927 cells/uL ABSOLUTE MONOCYTES (test cod e = 742-7) 622 cells/uL ABSOLUTE EOSINOPHILS (test code = 711-2) 12 cells/uL ABSOLUTE BASOPHILS (test cod e = 704-7) 43 cells/uL ABSOLUTE BLASTS (test code = 97486-3) DNR cells/uL ABSOLUTE NUCLEATED RBC (test code = 45711-5) DNR cells/uL NEUTROPHILS (test code = 770-8) 73.7 % BAND NEUTROPHILS (test code = 764-1) DNR % METAMYELOCYTES (test code = 740-1) DNR % MYELOCYTES (test code = 749-2) DNR % PROMYELOCYTES (test code = 783-1) DNR % LYMPHOCYTES (test code = 736-9) 15.2 % REACTIVE LYMPHOCYTES (test code = 61310-7) DNR % MONOCYTES (test code = 5905-5) 10.2 % EOSINOPHILS (test code = 713-8) 0.2 % BASOPHILS (test code = 706-2) 0.7 % BLASTS (test code = 709-6) DNR % NUCLEATED RBC (test code = 54590-1) DNR /100WBC Dany CookHIV 1/2 ANTIGEN/ANTIBODY,FOURTH GENERATION [id number] 00:00:00* Test Item Value Reference Range Interpretation Comme nts HIV AG/AB, 4TH GEN (test cod e = 30116-0) NON-REACTIVE Dany CookHEPATIC FUNCTION [id number] 00:00:00* Test Item Value Reference Range Interpretation Comme nts PROTEIN, TOTAL (test code = 2885-2) 8.1 g/dL ALBUMIN (test code = 1751-7) 4.2 g/dL GLOBULIN (test code = 06549-1) 3.9 g/dL(calc) ALBUMIN/GLOBULIN RATIO (test code = 1759-0) 1.1 (calc) BILIRUBIN, TOTAL (test code = 1974-10) 0.8 mg/dL BILIRUBIN, DIRECT (test code = 1968-03) 0.3 mg/dL BILIRUBIN, INDIRECT (test code = 1970-09) 0.5 mg/dL(calc) ALKALINE PHOSPHATASE (test code = 6768-6) 135 U/L AST (test code = 1919-8) 106 U/L ALT (test code = 1741-6) 76 U/L Dany CookHEPATITIS C VIRAL RNA GENOTYPE, LIPA(R)2024-12-21 00:00:00* Test Item Value Reference Range Interpretation Comme nts HEPATITIS C VIRAL RNA GENOTY PE, LIPA (test code = 13311-5) 3 Dany CookCOMPREHENSIVE METABOLIC [id number] 00:00:00* Test Item Value Reference Range Interpretation Comme nts GLUCOSE (test code = 2345-7) 97 mg/dL UREA NITROGEN (BUN) (test code = 3094-0) 14 mg/dL CREATININE (test code = 2160-0) 0.73 mg/dL EGFR (test code = 72173-9) 99 mL/min/1.73m2 BUN/CREATININE RATIO (test code = 3097-3) SEE NOTE: (calc) SODIUM (test code = 2951-2) 128 mmol/L POTASSIUM (test code = 2823-3) 4.2 mmol/L CHLORIDE (test code = 5-0) 93 mmol/L CARBON DIOXIDE (test code = 2027-9) 24 mmol/L CALCIUM (test code = 66715-6) 10.1 mg/dL PROTEIN, TOTAL (test code = 2885-2) 8.1 g/dL ALBUMIN (test code = 1751-7) 4.2 g/dL GLOBULIN (test code = 32518-6) 3.9 g/dL(calc) ALBUMIN/GLOBULIN RATIO (test code = 1759-0) 1.1 (calc) BILIRUBIN, TOTAL (test code = 1974-10) 0.8 mg/dL ALKALINE PHOSPHATASE (test code = 6768-6) 135 U/L AST (test code = 1919-8) 106 U/L ALT (test code = 1742-6) 76 U/L Dany Morgan, THIRD [id number] 14:40:04* Test Item Value Reference Range Interpretation Comme nts TSH, THIRD GENERATION (test code = 2821) TEST NOT PERFORMED UIU/ML 0.400-4.100 Unable to perform testing, improper specimen received.Charges adjusted as applicable. UNLESS OTHERWISE INDICATED, ALL TESTING PERFORMED AT CLINICAL PATHOLOGY [facility] [address] [place] [id number] CHERRY CUTTER: VENKATA CHILDRESS M.D. CLIA NUMBER [id number] [facility] [place]. [id number] LIPID [id number] 14:40:01* Test Item Value Reference Range Interpretation Comme nts CHOLESTEROL (test code = 2210) TEST NOT PERFORMED MG/DL <200 Unable to perform testing, improper specimen received.Charges adjusted as applicable. TRIGLYCERIDES (test code = 2232) TEST NOT PERFORMED MG/DL <150 HDL CHOLESTEROL (test code = 2220) TEST NOT PERFORMED MG/DL >39 CALC LDL CHOL (test code = 2237) TEST NOT PERFORMED MG/DL <100 NOTE: CALCULATED LDL IS BASED ON ÓSCAR-RODRÍGUEZ METHOD WHICHINCLUDES ADJUSTABLE TRIGLYCERIDE:VLDL CHOLESTEROL RATIO.THIS FACTOR VARIES BY MEASURED TRIGLYCERIDE AND NON-HDLCHOLESTEROL CONCENTRATIONS WITH INCREASED CALCULATED LDL SEENIN HIGHER TRIGLYCERIDE OR LOWER NON-HDL SPECIMENS. FOR MOREINFORMATION, SEE CLIENT ANNOUNCEMENT AT [email or web address] RISK RATIO LDL/HDL (test code = 2238) TEST NOT PERFORMED RATIO <3.55 COMPREHENSIVE METABOLIC [id number] 14:40:01* Test Item Value Reference Range Interpretation Comme nts GLUCOSE (test code = 2217) TEST NOT PERFORMED MG/DL 70-99 Unable to perform testing, improper specimen received.Charges adjusted as applicable. BUN (test code = 2208) TEST NOT PERFORMED MG/DL 8-23 CREATININE (test code = 2214) TEST NOT PERFORMED MG/DL 0.80-1.40 eGFR (2020 CKD-EPI) (test code = 78377) TEST NOT PERFORMED ML/MIN/1.73 >60 CALC BUN/CREAT (test code = 2235) TEST NOT PERFORMED RATIO 6-28 SODIUM (test code = 2231) TEST NOT PERFORMED MEQ/L 133-146 POTASSIUM (test code = 8) TEST NOT PERFORMED MEQ/L 3.5-5.4 CHLORIDE (test code = 2215) TEST NOT PERFORMED MEQ/L 95-107 CARBON DIOXIDE (test code = 6) TEST NOT PERFORMED MEQ/L 19-31 CALCIUM (test code = 9) TEST NOT PERFORMED MG/DL 8.5-10.5 PROTEIN, TOTAL (test code = 2228) TEST NOT PERFORMED G/DL 6.1-8.3 ALBUMIN (test code = 2200) TEST NOT PERFORMED G/DL 3.5-5.2 CALC GLOBULIN (test code = 224) TEST NOT PERFORMED G/DL 1.9-3.7 CALC A/G RATIO (test code = 223) TEST NOT PERFORMED RATIO 1.0-2.6 BILIRUBIN, TOTAL (test code = 2206) TEST NOT PERFORMED MG/DL <=1.2 ALKALINE PHOSPHATASE (test code = 2203) TEST NOT PERFORMED U/L 40-125 AST (test code = 2217) TEST NOT PERFORMED U/L 9-50 ALT (test code = 2218) TEST NOT PERFORMED U/L 5-50 LIPID [id number] 00:00:00* Test Item Value Reference Range Interpretation Comme nts CHOLESTEROL (test code = 2210) TEST NOT PERFORMED MG/DL TRIGLYCERIDES (test code = 2232) TEST NOT PERFORMED MG/DL HDL CHOLESTEROL (test code = 0) TEST NOT PERFORMED MG/DL CALC LDL CHOL (test code = 2236) TEST NOT PERFORMED MG/DL RISK RATIO LDL/HDL (test code = 2238) TEST NOT PERFORMED RATIO Dany CookCOMPREHENSIVE METABOLIC [id number] 00:00:00* Test Item Value Reference Range Interpretation Comme nts GLUCOSE (test code = 2217) TEST NOT PERFORMED MG/DL BUN (test code = 8) TEST NOT PERFORME D MG/DL CREATININE (test code = 2214) TEST NOT PERFORMED MG/DL eGFR (2020 CKD-EPI) (test code = 10059) TEST NOT PERFORMED ML/MIN/1.73 CALC BUN/CREAT (test code = 5) TEST NOT PERFORMED RATIO SODIUM (test code = 2231) TEST NOT PERFORMED MEQ/L POTASSIUM (test code = 2228) TEST NOT PERFORMED MEQ/L CHLORIDE (test code = 2215) TEST NOT PERFORMED MEQ/L CARBON DIOXIDE (test code = 220) TEST NOT PERFORMED MEQ/L CALCIUM (test code = 220) TEST NOT PERFORMED MG/DL PROTEIN, TOTAL (test code = 222) TEST NOT PERFORMED G/DL ALBUMIN (test code = 2201) TEST NOT PERFORMED G/DL CALC GLOBULIN (test code = 2240) TEST NOT PERFORMED G/DL CALC A/G RATIO (test code = 2234) TEST NOT PERFORMED RATIO BILIRUBIN, TOTAL (test code = 2207) TEST NOT PERFORMED MG/DL ALKALINE PHOSPHATASE (test code = 2204) TEST NOT PERFORMED U/L AST (test code = 2218) TEST NOT PERFORME D U/L ALT (test code = 221) TEST NOT PERFORME D U/L Dany CookTSH, THIRD [id number] 00:00:00* Test Item Value Reference Range Interpretation Comme nts TSH, THIRD GENERATION (test code = 2821) TEST NOT PERFORMED UIU/ML Dany CookLIPID [id number] 00:00:00* Test Item Value Reference Range Interpretation Comme nts CHOLESTEROL (test code = 2210) TEST NOT PERFORMED MG/DL TRIGLYCERIDES (test code = 2232) TEST NOT PERFORMED MG/DL HDL CHOLESTEROL (test code = 2220) TEST NOT PERFORMED MG/DL CALC LDL CHOL (test code = 2237) TEST NOT PERFORMED MG/DL RISK RATIO LDL/HDL (test code = 2238) TEST NOT PERFORMED RATIO Dany CookCOMPREHENSIVE METABOLIC [id number] 00:00:00* Test Item Value Reference Range Interpretation Comme nts GLUCOSE (test code = 2217) TEST NOT PERFORMED MG/DL BUN (test code = 2208) TEST NOT PERFORME D MG/DL CREATININE (test code = 2214) TEST NOT PERFORMED MG/DL eGFR (2020 CKD-EPI) (test code = 45214) TEST NOT PERFORMED ML/MIN/1.73 CALC BUN/CREAT (test code = 2235) TEST NOT PERFORMED RATIO SODIUM (test code = 2231) TEST NOT PERFORMED MEQ/L POTASSIUM (test code = 2228) TEST NOT PERFORMED MEQ/L CHLORIDE (test code = 2215) TEST NOT PERFORMED MEQ/L CARBON DIOXIDE (test code = 2206) TEST NOT PERFORMED MEQ/L CALCIUM (test code = 2209) TEST NOT PERFORMED MG/DL PROTEIN, TOTAL (test code = 2229) TEST NOT PERFORMED G/DL ALBUMIN (test code = 220) TEST NOT PERFORMED G/DL CALC GLOBULIN (test code = 2240) TEST NOT PERFORMED G/DL CALC A/G RATIO (test code = 2234) TEST NOT PERFORMED RATIO BILIRUBIN, TOTAL (test code = 2207) TEST NOT PERFORMED MG/DL ALKALINE PHOSPHATASE (test code = 2204) TEST NOT PERFORMED U/L AST (test code = 2218) TEST NOT PERFORME D U/L ALT (test code = 2219) TEST NOT PERFORME D U/L Dany CookTSH, THIRD [id number] 00:00:00* Test Item Value Reference Range Interpretation Comme nts TSH, THIRD GENERATION (test code = 2821) TEST NOT PERFORMED UIU/ML Dany CookLIPID [id number] 00:00:00* Test Item Value Reference Range Interpretation Comme nts CHOLESTEROL (test code = 2210) TEST NOT PERFORMED MG/DL TRIGLYCERIDES (test code = 2232) TEST NOT PERFORMED MG/DL HDL CHOLESTEROL (test code = 2220) TEST NOT PERFORMED MG/DL CALC LDL CHOL (test code = 2237) TEST NOT PERFORMED MG/DL RISK RATIO LDL/HDL (test code = 2238) TEST NOT PERFORMED RATIO Dany CookCOMPREHENSIVE METABOLIC [id number] 00:00:00* Test Item Value Reference Range Interpretation Comme nts GLUCOSE (test code = 2217) TEST NOT PERFORMED MG/DL BUN (test code = 2208) TEST NOT PERFORME D MG/DL CREATININE (test code = 2214) TEST NOT PERFORMED MG/DL eGFR (2020 CKD-EPI) (test code = 85833) TEST NOT PERFORMED ML/MIN/1.73 CALC BUN/CREAT (test code = 2235) TEST NOT PERFORMED RATIO SODIUM (test code = 2231) TEST NOT PERFORMED MEQ/L POTASSIUM (test code = 2228) TEST NOT PERFORMED MEQ/L CHLORIDE (test code = 2215) TEST NOT PERFORMED MEQ/L CARBON DIOXIDE (test code = 2206) TEST NOT PERFORMED MEQ/L CALCIUM (test code = 2209) TEST NOT PERFORMED MG/DL PROTEIN, TOTAL (test code = 2229) TEST NOT PERFORMED G/DL ALBUMIN (test code = 2201) TEST NOT PERFORMED G/DL CALC GLOBULIN (test code = 2240) TEST NOT PERFORMED G/DL CALC A/G RATIO (test code = 2234) TEST NOT PERFORMED RATIO BILIRUBIN, TOTAL (test code = 2207) TEST NOT PERFORMED MG/DL ALKALINE PHOSPHATASE (test code = 2204) TEST NOT PERFORMED U/L AST (test code = 2218) TEST NOT PERFORME D U/L ALT (test code = 2219) TEST NOT PERFORME D U/L Dany CookTSH, THIRD [id number] 00:00:00* Test Item Value Reference Range Interpretation Comme nts TSH, THIRD GENERATION (test code = 2821) TEST NOT PERFORMED UIU/ML Dany CookLIPID [id number] 00:00:00* Test Item Value Reference Range Interpretation Comme nts CHOLESTEROL (test code = 2210) TEST NOT PERFORMED MG/DL TRIGLYCERIDES (test code = 2232) TEST NOT PERFORMED MG/DL HDL CHOLESTEROL (test code = 2220) TEST NOT PERFORMED MG/DL CALC LDL CHOL (test code = 2237) TEST NOT PERFORMED MG/DL RISK RATIO LDL/HDL (test code = 2238) TEST NOT PERFORMED RATIO Dany CookCOMPREHENSIVE METABOLIC [id number] 00:00:00* Test Item Value Reference Range Interpretation Comme nts GLUCOSE (test code = 2217) TEST NOT PERFORMED MG/DL BUN (test code = 2208) TEST NOT PERFORME D MG/DL CREATININE (test code = 2214) TEST NOT PERFORMED MG/DL eGFR (2020 CKD-EPI) (test code = 27774) TEST NOT PERFORMED ML/MIN/1.73 CALC BUN/CREAT (test code = 2235) TEST NOT PERFORMED RATIO SODIUM (test code = 2231) TEST NOT PERFORMED MEQ/L POTASSIUM (test code = 2228) TEST NOT PERFORMED MEQ/L CHLORIDE (test code = 2215) TEST NOT PERFORMED MEQ/L CARBON DIOXIDE (test code = 2206) TEST NOT PERFORMED MEQ/L CALCIUM (test code = 2209) TEST NOT PERFORMED MG/DL PROTEIN, TOTAL (test code = 2229) TEST NOT PERFORMED G/DL ALBUMIN (test code = 2201) TEST NOT PERFORMED G/DL CALC GLOBULIN (test code = 2240) TEST NOT PERFORMED G/DL CALC A/G RATIO (test code = 2234) TEST NOT PERFORMED RATIO BILIRUBIN, TOTAL (test code = 2207) TEST NOT PERFORMED MG/DL ALKALINE PHOSPHATASE (test code = 2204) TEST NOT PERFORMED U/L AST (test code = 2218) TEST NOT PERFORME D U/L ALT (test code = 2219) TEST NOT PERFORME D U/L Dany Morgan, THIRD [id number] 00:00:00* Test Item Value Reference Range Interpretation Comme nts TSH, THIRD GENERATION (test code = 2821) TEST NOT PERFORMED UIU/ML Dany CookLIPID [id number] 00:00:00* Test Item Value Reference Range Interpretation Comme nts CHOLESTEROL (test code = 2210) TEST NOT PERFORMED MG/DL TRIGLYCERIDES (test code = 2232) TEST NOT PERFORMED MG/DL HDL CHOLESTEROL (test code = 2220) TEST NOT PERFORMED MG/DL CALC LDL CHOL (test code = 2237) TEST NOT PERFORMED MG/DL RISK RATIO LDL/HDL (test code = 2238) TEST NOT PERFORMED RATIO Dany CookCOMPREHENSIVE METABOLIC [id number] 00:00:00* Test Item Value Reference Range Interpretation Comme nts GLUCOSE (test code = 2217) TEST NOT PERFORMED MG/DL BUN (test code = 2208) TEST NOT PERFORME D MG/DL CREATININE (test code = 2214) TEST NOT PERFORMED MG/DL eGFR (2020 CKD-EPI) (test code = 20373) TEST NOT PERFORMED ML/MIN/1.73 CALC BUN/CREAT (test code = 2235) TEST NOT PERFORMED RATIO SODIUM (test code = 2231) TEST NOT PERFORMED MEQ/L POTASSIUM (test code = 2228) TEST NOT PERFORMED MEQ/L CHLORIDE (test code = 2215) TEST NOT PERFORMED MEQ/L CARBON DIOXIDE (test code = 2206) TEST NOT PERFORMED MEQ/L CALCIUM (test code = 2209) TEST NOT PERFORMED MG/DL PROTEIN, TOTAL (test code = 2229) TEST NOT PERFORMED G/DL ALBUMIN (test code = 2201) TEST NOT PERFORMED G/DL CALC GLOBULIN (test code = 2240) TEST NOT PERFORMED G/DL CALC A/G RATIO (test code = 2234) TEST NOT PERFORMED RATIO BILIRUBIN, TOTAL (test code = 2207) TEST NOT PERFORMED MG/DL ALKALINE PHOSPHATASE (test code = 2204) TEST NOT PERFORMED U/L AST (test code = 2218) TEST NOT PERFORME D U/L ALT (test code = 2219) TEST NOT PERFORME D U/L Dany F AustinTSH, THIRD [id number] 00:00:00* Test Item Value Reference Range Interpretation Comme nts TSH, THIRD GENERATION (test code = 2821) TEST NOT PERFORMED UIU/ML Dany CookLIPID [id number] 00:00:00* Test Item Value Reference Range Interpretation Comme nts CHOLESTEROL (test code = 2210) TEST NOT PERFORMED MG/DL TRIGLYCERIDES (test code = 2232) TEST NOT PERFORMED MG/DL HDL CHOLESTEROL (test code = 2220) TEST NOT PERFORMED MG/DL CALC LDL CHOL (test code = 2237) TEST NOT PERFORMED MG/DL RISK RATIO LDL/HDL (test code = 2238) TEST NOT PERFORMED RATIO Dany CookCOMPREHENSIVE METABOLIC [id number] 00:00:00* Test Item Value Reference Range Interpretation Comme nts GLUCOSE (test code = 2217) TEST NOT PERFORMED MG/DL BUN (test code = 2208) TEST NOT PERFORME D MG/DL CREATININE (test code = 2214) TEST NOT PERFORMED MG/DL eGFR (2020 CKD-EPI) (test code = 57195) TEST NOT PERFORMED ML/MIN/1.73 CALC BUN/CREAT (test code = 2235) TEST NOT PERFORMED RATIO SODIUM (test code = 2231) TEST NOT PERFORMED MEQ/L POTASSIUM (test code = 2228) TEST NOT PERFORMED MEQ/L CHLORIDE (test code = 2215) TEST NOT PERFORMED MEQ/L CARBON DIOXIDE (test code = 2206) TEST NOT PERFORMED MEQ/L CALCIUM (test code = 2209) TEST NOT PERFORMED MG/DL PROTEIN, TOTAL (test code = 2229) TEST NOT PERFORMED G/DL ALBUMIN (test code = 2201) TEST NOT PERFORMED G/DL CALC GLOBULIN (test code = 2240) TEST NOT PERFORMED G/DL CALC A/G RATIO (test code = 2234) TEST NOT PERFORMED RATIO BILIRUBIN, TOTAL (test code = 2207) TEST NOT PERFORMED MG/DL ALKALINE PHOSPHATASE (test code = 2204) TEST NOT PERFORMED U/L AST (test code = 2218) TEST NOT PERFORME D U/L ALT (test code = 2219) TEST NOT PERFORME D U/L Dany Morgan, THIRD [id number] 00:00:00* Test Item Value Reference Range Interpretation Comme nts TSH, THIRD GENERATION (test code = 2821) TEST NOT PERFORMED UIU/ML Dany CookLIPID [id number] 00:00:00* Test Item Value Reference Range Interpretation Comme nts CHOLESTEROL (test code = 2210) TEST NOT PERFORMED MG/DL TRIGLYCERIDES (test code = 2232) TEST NOT PERFORMED MG/DL HDL CHOLESTEROL (test code = 2220) TEST NOT PERFORMED MG/DL CALC LDL CHOL (test code = 2237) TEST NOT PERFORMED MG/DL RISK RATIO LDL/HDL (test code = 2238) TEST NOT PERFORMED RATIO Dany CookCOMPREHENSIVE METABOLIC [id number] 00:00:00* Test Item Value Reference Range Interpretation Comme nts GLUCOSE (test code = 2217) TEST NOT PERFORMED MG/DL BUN (test code = 2208) TEST NOT PERFORME D MG/DL CREATININE (test code = 2214) TEST NOT PERFORMED MG/DL eGFR (2020 CKD-EPI) (test code = 22146) TEST NOT PERFORMED ML/MIN/1.73 CALC BUN/CREAT (test code = 2235) TEST NOT PERFORMED RATIO SODIUM (test code = 2231) TEST NOT PERFORMED MEQ/L POTASSIUM (test code = 2228) TEST NOT PERFORMED MEQ/L CHLORIDE (test code = 2215) TEST NOT PERFORMED MEQ/L CARBON DIOXIDE (test code = 2206) TEST NOT PERFORMED MEQ/L CALCIUM (test code = 2209) TEST NOT PERFORMED MG/DL PROTEIN, TOTAL (test code = 2229) TEST NOT PERFORMED G/DL ALBUMIN (test code = 2201) TEST NOT PERFORMED G/DL CALC GLOBULIN (test code = 2240) TEST NOT PERFORMED G/DL CALC A/G RATIO (test code = 2234) TEST NOT PERFORMED RATIO BILIRUBIN, TOTAL (test code = 2207) TEST NOT PERFORMED MG/DL ALKALINE PHOSPHATASE (test code = 2204) TEST NOT PERFORMED U/L AST (test code = 2218) TEST NOT PERFORME D U/L ALT (test code = 2219) TEST NOT PERFORME D U/L Dany CookTSH, THIRD [id number] 00:00:00* Test Item Value Reference Range Interpretation Comme nts TSH, THIRD GENERATION (test code = 2821) TEST NOT PERFORMED UIU/ML Dany CookCBC W/AUTO DIFF WITH [id number] 01:56:13* Test Item Value Reference Range Interpretation Comme nts WBC (test code = 1001) 5.5 K/UL 3.5-11.0 RBC (test code = 1002) 4.27 M/UL 4.50-6.10 L HEMOGLOBIN (test code = 1003) 14.6 G/DL 13.5-17.0 HEMATOCRIT (test code = 1004) 42.1 % 40.0-51.0 MCV (test code = 1005) 98.6 fL 80.0-99.0 MCH (test code = 1006) 34.2 PG 25.0-33.0 H MCHC (test code = 1007) 34.7 G/DL 31.0-36.0 RDW (test code = 1038) 12.3 % 11.5-15.0 NEUTROPHILS (test code = 1008) 73.4 % LYMPHOCYTES (test code = 1010) 15.8 % MONOCYTES (test code = 1011) 9.2 % EOSINOPHILS (test code = 1012) 0.5 % BASOPHILS (test code = 1013) 0.7 % IMMATURE GRANULOCYTES (test code = 1036) 0.4 % NUCLEATED RBCS (test code = 1065) 0.0 /100 WBC'S See_Comment [Automated messa ge] The system which generated this result transmitted reference range: 0.0. The reference range was not used to interpret this result as normal/abnormal. PLATELET COUNT (test code = 1015) 161 K/UL 130-400 ABSOLUTE NEUTROPHILS (test code = 1066) 4.01 K/UL 1.50-7.50 ABSOLUTE LYMPHOCYTES (test code = 1067) 0.86 K/UL 1.00-4.00 L ABSOLUTE MONOCYTES (test code = 1068) 0.50 K/UL 0.20-1.00 ABSOLUTE EOSINOPHILS (test code = 1040) 0.03 K/UL 0.00-0.50 ABSOLUTE BASOPHILS (test code = 1069) 0.04 K/UL 0.00-0.20 ABS IMMATURE GRANULOCYTES (test code = 1020) 0.02 K/UL 0.00-0.10 ABS NUCLEATED RBCS (test code = 40501) 0.00 K/UL 0.00-0.11 CBC W/AUTO [id number] 00:00:00* Test Item Value Reference Range Interpretation Comme nts WBC (test code = 1001) 5.5 K/UL RBC (test code = 1002) 4.27 M/UL HEMOGLOBIN (test code = 1003) 14.6 G/DL HEMATOCRIT (test code = 1004) 42.1 % MCV (test code = 1005) 98.6 fL MCH (test code = 1006) 34.2 PG MCHC (test code = 1007) 34.7 G/DL RDW (test code = 1038) 12.3 % NEUTROPHILS (test code = 1008) 73.4 % LYMPHOCYTES (test code = 1010) 15.8 % MONOCYTES (test code = 1011) 9.2 % EOSINOPHILS (test code = 1012) 0.5 % BASOPHILS (test code = 1013) 0.7 % IMMATURE GRANULOCYTES (test code = 1036) 0.4 % NUCLEATED RBCS (test code = 1065) 0.0 /100WBC'S PLATELET COUNT (test code = 1015) 161 K/UL ABSOLUTE NEUTROPHILS (test c ode = 1066) 4.01 K/UL ABSOLUTE LYMPHOCYTES (test c ode = 1067) 0.86 K/UL ABSOLUTE MONOCYTES (test cod e = 1068) 0.50 K/UL ABSOLUTE EOSINOPHILS (test c ode = 1040) 0.03 K/UL ABSOLUTE BASOPHILS (test cod e = 1069) 0.04 K/UL ABS IMMATURE GRANULOCYTES (t est code = 1020) 0.02 K/UL ABS NUCLEATED RBCS (test cod e = 55383) 0.00 K/UL Dany Ann [facility] W/AUTO [id number] 00:00:00* Test Item Value Reference Range Interpretation Comme nts WBC (test code = 1001) 5.5 K/UL RBC (test code = 1002) 4.27 M/UL HEMOGLOBIN (test code = 1003) 14.6 G/DL HEMATOCRIT (test code = 1004) 42.1 % MCV (test code = 1005) 98.6 fL MCH (test code = 1006) 34.2 PG MCHC (test code = 1007) 34.7 G/DL RDW (test code = 1038) 12.3 % NEUTROPHILS (test code = 1008) 73.4 % LYMPHOCYTES (test code = 1010) 15.8 % MONOCYTES (test code = 1011) 9.2 % EOSINOPHILS (test code = 1012) 0.5 % BASOPHILS (test code = 1013) 0.7 % IMMATURE GRANULOCYTES (test code = 1036) 0.4 % NUCLEATED RBCS (test code = 1065) 0.0 /100WBC'S PLATELET COUNT (test code = 1015) 161 K/UL ABSOLUTE NEUTROPHILS (test c ode = 1066) 4.01 K/UL ABSOLUTE LYMPHOCYTES (test c ode = 1067) 0.86 K/UL ABSOLUTE MONOCYTES (test cod e = 1068) 0.50 K/UL ABSOLUTE EOSINOPHILS (test c ode = 1040) 0.03 K/UL ABSOLUTE BASOPHILS (test cod e = 1069) 0.04 K/UL ABS IMMATURE GRANULOCYTES (t est code = 1020) 0.02 K/UL ABS NUCLEATED RBCS (test cod e = 44540) 0.00 K/UL [facility]any Ann [facility] [id number] 00:00:00* Test Item Value Reference Range Interpretation Comme nts WBC (test code = 1001) 5.5 K/UL RBC (test code = 1002) 4.27 M/UL HEMOGLOBIN (test code = 1003) 14.6 G/DL HEMATOCRIT (test code = 1004) 42.1 % MCV (test code = 1005) 98.6 fL MCH (test code = 1006) 34.2 PG MCHC (test code = 1007) 34.7 G/DL RDW (test code = 1038) 12.3 % NEUTROPHILS (test code = 1008) 73.4 % LYMPHOCYTES (test code = 1010) 15.8 % MONOCYTES (test code = 1011) 9.2 % EOSINOPHILS (test code = 1012) 0.5 % BASOPHILS (test code = 1013) 0.7 % IMMATURE GRANULOCYTES (test code = 1036) 0.4 % NUCLEATED RBCS (test code = 1065) 0.0 /100WBC'S PLATELET COUNT (test code = 1015) 161 K/UL ABSOLUTE NEUTROPHILS (test c ode = 1066) 4.01 K/UL ABSOLUTE LYMPHOCYTES (test c ode = 1067) 0.86 K/UL ABSOLUTE MONOCYTES (test cod e = 1068) 0.50 K/UL ABSOLUTE EOSINOPHILS (test c ode = 1040) 0.03 K/UL ABSOLUTE BASOPHILS (test cod e = 1069) 0.04 K/UL ABS IMMATURE GRANULOCYTES (t est code = 1020) 0.02 K/UL ABS NUCLEATED RBCS (test cod e = 09869) 0.00 K/UL Dany CookC W/AUTO [id number] 00:00:00* Test Item Value Reference Range Interpretation Comme nts WBC (test code = 1001) 5.5 K/UL RBC (test code = 1002) 4.27 M/UL HEMOGLOBIN (test code = 1003) 14.6 G/DL HEMATOCRIT (test code = 1004) 42.1 % MCV (test code = 1005) 98.6 fL MCH (test code = 1006) 34.2 PG MCHC (test code = 1007) 34.7 G/DL RDW (test code = 1038) 12.3 % NEUTROPHILS (test code = 1008) 73.4 % LYMPHOCYTES (test code = 1010) 15.8 % MONOCYTES (test code = 1011) 9.2 % EOSINOPHILS (test code = 1012) 0.5 % BASOPHILS (test code = 1013) 0.7 % IMMATURE GRANULOCYTES (test code = 1036) 0.4 % NUCLEATED RBCS (test code = 1065) 0.0 /100WBC'S PLATELET COUNT (test code = 1015) 161 K/UL ABSOLUTE NEUTROPHILS (test c ode = 1066) 4.01 K/UL ABSOLUTE LYMPHOCYTES (test c ode = 1067) 0.86 K/UL ABSOLUTE MONOCYTES (test cod e = 1068) 0.50 K/UL ABSOLUTE EOSINOPHILS (test c ode = 1040) 0.03 K/UL ABSOLUTE BASOPHILS (test cod e = 1069) 0.04 K/UL ABS IMMATURE GRANULOCYTES (t est code = 1020) 0.02 K/UL ABS NUCLEATED RBCS (test cod e = 43275) 0.00 K/UL Dany CookC W/AUTO [id number] 00:00:00* Test Item Value Reference Range Interpretation Comme nts WBC (test code = 1001) 5.5 K/UL RBC (test code = 1002) 4.27 M/UL HEMOGLOBIN (test code = 1003) 14.6 G/DL HEMATOCRIT (test code = 1004) 42.1 % MCV (test code = 1005) 98.6 fL MCH (test code = 1006) 34.2 PG MCHC (test code = 1007) 34.7 G/DL RDW (test code = 1038) 12.3 % NEUTROPHILS (test code = 1008) 73.4 % LYMPHOCYTES (test code = 1010) 15.8 % MONOCYTES (test code = 1011) 9.2 % EOSINOPHILS (test code = 1012) 0.5 % BASOPHILS (test code = 1013) 0.7 % IMMATURE GRANULOCYTES (test code = 1036) 0.4 % NUCLEATED RBCS (test code = 1065) 0.0 /100WBC'S PLATELET COUNT (test code = 1015) 161 K/UL ABSOLUTE NEUTROPHILS (test c ode = 1066) 4.01 K/UL ABSOLUTE LYMPHOCYTES (test c ode = 1067) 0.86 K/UL ABSOLUTE MONOCYTES (test cod e = 1068) 0.50 K/UL ABSOLUTE EOSINOPHILS (test c ode = 1040) 0.03 K/UL ABSOLUTE BASOPHILS (test cod e = 1069) 0.04 K/UL ABS IMMATURE GRANULOCYTES (t est code = 1020) 0.02 K/UL ABS NUCLEATED RBCS (test cod e = 45251) 0.00 K/UL Dany Ann [facility] W/AUTO [id number] 00:00:00* Test Item Value Reference Range Interpretation Comme nts WBC (test code = 1001) 5.5 K/UL RBC (test code = 1002) 4.27 M/UL HEMOGLOBIN (test code = 1003) 14.6 G/DL HEMATOCRIT (test code = 1004) 42.1 % MCV (test code = 1005) 98.6 fL MCH (test code = 1006) 34.2 PG MCHC (test code = 1007) 34.7 G/DL RDW (test code = 1038) 12.3 % NEUTROPHILS (test code = 1008) 73.4 % LYMPHOCYTES (test code = 1010) 15.8 % MONOCYTES (test code = 1011) 9.2 % EOSINOPHILS (test code = 1012) 0.5 % BASOPHILS (test code = 1013) 0.7 % IMMATURE GRANULOCYTES (test code = 1036) 0.4 % NUCLEATED RBCS (test code = 1065) 0.0 /100WBC'S PLATELET COUNT (test code = 1015) 161 K/UL ABSOLUTE NEUTROPHILS (test c ode = 1066) 4.01 K/UL ABSOLUTE LYMPHOCYTES (test c ode = 1067) 0.86 K/UL ABSOLUTE MONOCYTES (test cod e = 1068) 0.50 K/UL ABSOLUTE EOSINOPHILS (test c ode = 1040) 0.03 K/UL ABSOLUTE BASOPHILS (test cod e = 1069) 0.04 K/UL ABS IMMATURE GRANULOCYTES (t est code = 1020) 0.02 K/UL ABS NUCLEATED RBCS (test cod e = 46575) 0.00 K/UL Dany CookCBC W/AUTO [id number] 00:00:00* Test Item Value Reference Range Interpretation Comme nts WBC (test code = 1001) 5.5 K/UL RBC (test code = 1002) 4.27 M/UL HEMOGLOBIN (test code = 1003) 14.6 G/DL HEMATOCRIT (test code = 1004) 42.1 % MCV (test code = 1005) 98.6 fL MCH (test code = 1006) 34.2 PG MCHC (test code = 1007) 34.7 G/DL RDW (test code = 1038) 12.3 % NEUTROPHILS (test code = 1008) 73.4 % LYMPHOCYTES (test code = 1010) 15.8 % MONOCYTES (test code = 1011) 9.2 % EOSINOPHILS (test code = 1012) 0.5 % BASOPHILS (test code = 1013) 0.7 % IMMATURE GRANULOCYTES (test code = 1036) 0.4 % NUCLEATED RBCS (test code = 1065) 0.0 /100WBC'S PLATELET COUNT (test code = 1015) 161 K/UL ABSOLUTE NEUTROPHILS (test c ode = 1066) 4.01 K/UL ABSOLUTE LYMPHOCYTES (test c ode = 1067) 0.86 K/UL ABSOLUTE MONOCYTES (test cod e = 1068) 0.50 K/UL ABSOLUTE EOSINOPHILS (test c ode = 1040) 0.03 K/UL ABSOLUTE BASOPHILS (test cod e = 1069) 0.04 K/UL ABS IMMATURE GRANULOCYTES (t est code = 1020) 0.02 K/UL ABS NUCLEATED RBCS (test cod e = 70846) 0.00 K/UL Dany CookCOMPREHENSIVE METABOLIC [id number] 00:00:00* Test Item Value Reference Range Interpretation Comme nts GLUCOSE (test code = 2217) 89 MG/DL BUN (test code = 2208) 7 MG/DL CREATININE (test code = 2214) 0.62 MG/DL eGFR (2020 CKD-EPI) (test code = 47578) 105 ML/MIN/1.73 CALC BUN/CREAT (test code = 2235) 11 RATIO SODIUM (test code = 2231) 141 MEQ/L POTASSIUM (test code = 2228) 4.6 MEQ/L CHLORIDE (test code = 2215) 104 MEQ/L CARBON DIOXIDE (test code = 2206) 24 MEQ/L CALCIUM (test code = 2209) 9.5 MG/DL PROTEIN, TOTAL (test code = 2229) 8.2 G/DL ALBUMIN (test code = 2201) 4.2 G/DL CALC GLOBULIN (test code = 2240) 4.0 G/DL CALC A/G RATIO (test code = 2234) 1.1 RATIO BILIRUBIN, TOTAL (test code = 2207) 0.9 MG/DL ALKALINE PHOSPHATASE (test code = 2204) 125 U/L AST (test code = 2218) 209 U/L ALT (test code = 2219) 145 U/L Dany CookHEMOGLOBIN [id number] 00:00:00* Test Item Value Reference Range Interpretation Comme [facility] HEMOGLOBIN A1c (test code = 39156) 5.2 % Dany CookTSH, THIRD [id number] 00:00:00* Test Item Value Reference Range Interpretation Comme [facility] TSH, THIRD GENERATION (test code = 2821) 2.970 UIU/ML Dany CookACUTE HEPATITIS [id number] 00:00:00* Test Item Value Reference Range Interpretation Comme nts HEPATITIS A IgM (test code = 00274) NON-REACTIVE HEPATITIS B CORE IgM (test c ode = 4644) NON-REACTIVE HEPATITIS B SURF AG (test co de = 0969) NON-REACTIVE HEPATITIS C ANTIBODY (test c ode = 4644) REACTIVE INTERPRETATION HEPATITIS A: (test code = 2552) (NOTE) INTERPRETATION HEPATITIS B: (test code = 50933) (NOTE) INTERPRETATION HEPATITIS C: (test code = 07723) (NOTE) Dany CookLIPID [id number] 00:00:00* Test Item Value Reference Range Interpretation Comme nts CHOLESTEROL (test code = 2210) 137 MG/DL TRIGLYCERIDES (test code = 2232) 55 MG/DL HDL CHOLESTEROL (test code = 2220) 71 MG/DL CALC LDL CHOL (test code = 2237) 52 MG/DL RISK RATIO LDL/HDL (test cod e = 2238) 0.73 RATIO Dany CookCOMPREHENSIVE METABOLIC [id number] 00:00:00* Test Item Value Reference Range Interpretation Comme nts GLUCOSE (test code = 2217) 89 MG/DL BUN (test code = 2208) 7 MG/DL CREATININE (test code = 2214) 0.62 MG/DL eGFR (2020 CKD-EPI) (test code = 70818) 105 ML/MIN/1.73 CALC BUN/CREAT (test code = 2235) 11 RATIO SODIUM (test code = 2231) 141 MEQ/L POTASSIUM (test code = 2228) 4.6 MEQ/L CHLORIDE (test code = 2215) 104 MEQ/L CARBON DIOXIDE (test code = 2206) 24 MEQ/L CALCIUM (test code = 2209) 9.5 MG/DL PROTEIN, TOTAL (test code = 2229) 8.2 G/DL ALBUMIN (test code = 2201) 4.2 G/DL CALC GLOBULIN (test code = 2240) 4.0 G/DL CALC A/G RATIO (test code = 2234) 1.1 RATIO BILIRUBIN, TOTAL (test code = 2207) 0.9 MG/DL ALKALINE PHOSPHATASE (test code = 2204) 125 U/L AST (test code = 2218) 209 U/L ALT (test code = 2219) 145 U/L Dany CookHEMOGLOBIN [id number] 00:00:00* Test Item Value Reference Range Interpretation Comme nts HEMOGLOBIN A1c (test code = 91164) 5.2 % Dany CookTSH, THIRD [id number] 00:00:00* Test Item Value Reference Range Interpretation Comme nts TSH, THIRD GENERATION (test code = 2821) 2.970 UIU/ML Dany CookACUTE HEPATITIS [id number] 00:00:00* Test Item Value Reference Range Interpretation Comme nts HEPATITIS A IgM (test code = 50691) NON-REACTIVE HEPATITIS B CORE IgM (test c ode = 4667) NON-REACTIVE HEPATITIS B SURF AG (test co de = 6829) NON-REACTIVE HEPATITIS C ANTIBODY (test c ode = 4675) REACTIVE INTERPRETATION HEPATITIS A: (test code = 2552) (NOTE) INTERPRETATION HEPATITIS B: (test code = 61886) (NOTE) INTERPRETATION HEPATITIS C: (test code = 07971) (NOTE) Dany CookLIPID [id number] 00:00:00* Test Item Value Reference Range Interpretation Comme nts CHOLESTEROL (test code = 2210) 137 MG/DL TRIGLYCERIDES (test code = 2232) 55 MG/DL HDL CHOLESTEROL (test code = 2220) 71 MG/DL CALC LDL CHOL (test code = 2237) 52 MG/DL RISK RATIO LDL/HDL (test cod e = 2238) 0.73 RATIO Dany CookCOMPREHENSIVE METABOLIC [id number] 00:00:00* Test Item Value Reference Range Interpretation Comme nts GLUCOSE (test code = 2217) 89 MG/DL BUN (test code = 2208) 7 MG/DL CREATININE (test code = 2214) 0.62 MG/DL eGFR (2020 CKD-EPI) (test code = 59607) 105 ML/MIN/1.73 CALC BUN/CREAT (test code = 2235) 11 RATIO SODIUM (test code = 2231) 141 MEQ/L POTASSIUM (test code = 2228) 4.6 MEQ/L CHLORIDE (test code = 2215) 104 MEQ/L CARBON DIOXIDE (test code = 2206) 24 MEQ/L CALCIUM (test code = 2209) 9.5 MG/DL PROTEIN, TOTAL (test code = 2229) 8.2 G/DL ALBUMIN (test code = 2201) 4.2 G/DL CALC GLOBULIN (test code = 2240) 4.0 G/DL CALC A/G RATIO (test code = 2234) 1.1 RATIO BILIRUBIN, TOTAL (test code = 2207) 0.9 MG/DL ALKALINE PHOSPHATASE (test code = 2204) 125 U/L AST (test code = 2218) 209 U/L ALT (test code = 2219) 145 U/L Dany CookHEMOGLOBIN [id number] 00:00:00* Test Item Value Reference Range Interpretation Comme nts HEMOGLOBIN A1c (test code = 63912) 5.2 % Dany Ann JoeyTSH, THIRD [id number] 00:00:00* Test Item Value Reference Range Interpretation Comme nts TSH, THIRD GENERATION (test code = 2821) 2.970 UIU/ML Dany CookACUTE HEPATITIS [id number] 00:00:00* Test Item Value Reference Range Interpretation Comme nts HEPATITIS A IgM (test code = 44818) NON-REACTIVE HEPATITIS B CORE IgM (test c ode = 4644) NON-REACTIVE HEPATITIS B SURF AG (test co de = 2739) NON-REACTIVE HEPATITIS C ANTIBODY (test c ode = 4640) REACTIVE INTERPRETATION HEPATITIS A: (test code = 2552) (NOTE) INTERPRETATION HEPATITIS B: (test code = 19630) (NOTE) INTERPRETATION HEPATITIS C: (test code = 97257) (NOTE) Dany CookLIPID [id number] 00:00:00* Test Item Value Reference Range Interpretation Comme nts CHOLESTEROL (test code = 2210) 137 MG/DL TRIGLYCERIDES (test code = 2232) 55 MG/DL HDL CHOLESTEROL (test code = 2220) 71 MG/DL CALC LDL CHOL (test code = 2237) 52 MG/DL RISK RATIO LDL/HDL (test cod e = 2238) 0.73 RATIO Dany CookCOMPREHENSIVE METABOLIC [id number] 00:00:00* Test Item Value Reference Range Interpretation Comme nts GLUCOSE (test code = 2217) 89 MG/DL BUN (test code = 2208) 7 MG/DL CREATININE (test code = 2214) 0.62 MG/DL eGFR (2020 CKD-EPI) (test code = 85408) 105 ML/MIN/1.73 CALC BUN/CREAT (test code = 2235) 11 RATIO SODIUM (test code = 2231) 141 MEQ/L POTASSIUM (test code = 2228) 4.6 MEQ/L CHLORIDE (test code = 2215) 104 MEQ/L CARBON DIOXIDE (test code = 2206) 24 MEQ/L CALCIUM (test code = 2209) 9.5 MG/DL PROTEIN, TOTAL (test code = 2229) 8.2 G/DL ALBUMIN (test code = 2201) 4.2 G/DL CALC GLOBULIN (test code = 2240) 4.0 G/DL CALC A/G RATIO (test code = 2234) 1.1 RATIO BILIRUBIN, TOTAL (test code = 2207) 0.9 MG/DL ALKALINE PHOSPHATASE (test code = 2204) 125 U/L AST (test code = 2218) 209 U/L ALT (test code = 2219) 145 U/L Dany CookHEMOGLOBIN [id number] 00:00:00* Test Item Value Reference Range Interpretation Comme [facility] HEMOGLOBIN A1c (test code = 31274) 5.2 % Dany CookTSH, THIRD [id number] 00:00:00* Test Item Value Reference Range Interpretation Comme [facility] TSH, THIRD GENERATION (test code = 2821) 2.970 UIU/ML Dany CookACUTE HEPATITIS [id number] 00:00:00* Test Item Value Reference Range Interpretation Comme nts HEPATITIS A IgM (test code = 50884) NON-REACTIVE HEPATITIS B CORE IgM (test c ode = 4644) NON-REACTIVE HEPATITIS B SURF AG (test co de = 2739) NON-REACTIVE HEPATITIS C ANTIBODY (test c ode = 4675) REACTIVE INTERPRETATION HEPATITIS A: (test code = 2552) (NOTE) INTERPRETATION HEPATITIS B: (test code = 49482) (NOTE) INTERPRETATION HEPATITIS C: (test code = 43501) (NOTE) Dany CookLIPID [id number] 00:00:00* Test Item Value Reference Range Interpretation Comme nts CHOLESTEROL (test code = 2210) 137 MG/DL TRIGLYCERIDES (test code = 2232) 55 MG/DL HDL CHOLESTEROL (test code = 2220) 71 MG/DL CALC LDL CHOL (test code = 2237) 52 MG/DL RISK RATIO LDL/HDL (test cod e = 2238) 0.73 RATIO Dany CookCOMPREHENSIVE METABOLIC [id number] 00:00:00* Test Item Value Reference Range Interpretation Comme nts GLUCOSE (test code = 2217) 89 MG/DL BUN (test code = 2208) 7 MG/DL CREATININE (test code = 2214) 0.62 MG/DL eGFR (2020 CKD-EPI) (test code = 69695) 105 ML/MIN/1.73 CALC BUN/CREAT (test code = 2235) 11 RATIO SODIUM (test code = 2231) 141 MEQ/L POTASSIUM (test code = 2228) 4.6 MEQ/L CHLORIDE (test code = 2215) 104 MEQ/L CARBON DIOXIDE (test code = 2206) 24 MEQ/L CALCIUM (test code = 2209) 9.5 MG/DL PROTEIN, TOTAL (test code = 2229) 8.2 G/DL ALBUMIN (test code = 2201) 4.2 G/DL CALC GLOBULIN (test code = 2240) 4.0 G/DL CALC A/G RATIO (test code = 2234) 1.1 RATIO BILIRUBIN, TOTAL (test code = 2207) 0.9 MG/DL ALKALINE PHOSPHATASE (test code = 2204) 125 U/L AST (test code = 2218) 209 U/L ALT (test code = 2219) 145 U/L Dany CookHEMOGLOBIN [id number] 00:00:00* Test Item Value Reference Range Interpretation Comme nts HEMOGLOBIN A1c (test code = 02497) 5.2 % Dany RodrigesH, THIRD [id number] 00:00:00* Test Item Value Reference Range Interpretation Comme nts TSH, THIRD GENERATION (test code = 2821) 2.970 UIU/ML Dany CookACUTE HEPATITIS [id number] 00:00:00* Test Item Value Reference Range Interpretation Comme nts HEPATITIS A IgM (test code = 72845) NON-REACTIVE HEPATITIS B CORE IgM (test c ode = 4644) NON-REACTIVE HEPATITIS B SURF AG (test co de = 2739) NON-REACTIVE HEPATITIS C ANTIBODY (test c ode = 4675) REACTIVE INTERPRETATION HEPATITIS A: (test code = 2552) (NOTE) INTERPRETATION HEPATITIS B: (test code = 45397) (NOTE) INTERPRETATION HEPATITIS C: (test code = 94258) (NOTE) Dany CookLIPID [id number] 00:00:00* Test Item Value Reference Range Interpretation Comme nts CHOLESTEROL (test code = 2210) 137 MG/DL TRIGLYCERIDES (test code = 2232) 55 MG/DL HDL CHOLESTEROL (test code = 2220) 71 MG/DL CALC LDL CHOL (test code = 2237) 52 MG/DL RISK RATIO LDL/HDL (test cod e = 2238) 0.73 RATIO Dany CookCOMPREHENSIVE METABOLIC [id number] 00:00:00* Test Item Value Reference Range Interpretation Comme nts GLUCOSE (test code = 2217) 89 MG/DL BUN (test code = 2208) 7 MG/DL CREATININE (test code = 2214) 0.62 MG/DL eGFR (2020 CKD-EPI) (test code = 44941) 105 ML/MIN/1.73 CALC BUN/CREAT (test code = 2235) 11 RATIO SODIUM (test code = 2231) 141 MEQ/L POTASSIUM (test code = 2228) 4.6 MEQ/L CHLORIDE (test code = 2215) 104 MEQ/L CARBON DIOXIDE (test code = 2206) 24 MEQ/L CALCIUM (test code = 2209) 9.5 MG/DL PROTEIN, TOTAL (test code = 222) 8.2 G/DL ALBUMIN (test code = 220) 4.2 G/DL CALC GLOBULIN (test code = 2240) 4.0 G/DL CALC A/G RATIO (test code = 2234) 1.1 RATIO BILIRUBIN, TOTAL (test code = 7) 0.9 MG/DL ALKALINE PHOSPHATASE (test code = 4) 125 U/L AST (test code = 2218) 209 U/L ALT (test code = 2219) 145 U/L Dany CookHEMOGLOBIN [id number] 00:00:00* Test Item Value Reference Range Interpretation Comme nts HEMOGLOBIN A1c (test code = 68599) 5.2 % Dany CookTSH, THIRD [id number] 00:00:00* Test Item Value Reference Range Interpretation Comme nts TSH, THIRD GENERATION (test code = 2821) 2.970 UIU/ML Dany CookACUTE HEPATITIS [id number] 00:00:00* Test Item Value Reference Range Interpretation Comme nts HEPATITIS A IgM (test code = 81166) NON-REACTIVE HEPATITIS B CORE IgM (test c ode = 4644) NON-REACTIVE HEPATITIS B SURF AG (test co de = 2989) NON-REACTIVE HEPATITIS C ANTIBODY (test c ode = 4642) REACTIVE INTERPRETATION HEPATITIS A: (test code = 2552) (NOTE) INTERPRETATION HEPATITIS B: (test code = 67510) (NOTE) INTERPRETATION HEPATITIS C: (test code = 07837) (NOTE) Dany CookLIPID [id number] 00:00:00* Test Item Value Reference Range Interpretation Comme nts CHOLESTEROL (test code = 2210) 137 MG/DL TRIGLYCERIDES (test code = 2232) 55 MG/DL HDL CHOLESTEROL (test code = 2220) 71 MG/DL CALC LDL CHOL (test code = 2237) 52 MG/DL RISK RATIO LDL/HDL (test cod e = 2238) 0.73 RATIO Dany CookCOMPREHENSIVE METABOLIC [id number] 00:00:00* Test Item Value Reference Range Interpretation Comme nts GLUCOSE (test code = 2217) 89 MG/DL BUN (test code = 2208) 7 MG/DL CREATININE (test code = 2214) 0.62 MG/DL eGFR (2020 CKD-EPI) (test code = 12884) 105 ML/MIN/1.73 CALC BUN/CREAT (test code = 2235) 11 RATIO SODIUM (test code = 2231) 141 MEQ/L POTASSIUM (test code = 2228) 4.6 MEQ/L CHLORIDE (test code = 2215) 104 MEQ/L CARBON DIOXIDE (test code = 2206) 24 MEQ/L CALCIUM (test code = 2209) 9.5 MG/DL PROTEIN, TOTAL (test code = 2229) 8.2 G/DL ALBUMIN (test code = 2201) 4.2 G/DL CALC GLOBULIN (test code = 2240) 4.0 G/DL CALC A/G RATIO (test code = 2234) 1.1 RATIO BILIRUBIN, TOTAL (test code = 2207) 0.9 MG/DL ALKALINE PHOSPHATASE (test code = 2204) 125 U/L AST (test code = 2218) 209 U/L ALT (test code = 2219) 145 U/L Dany CookHEMOGLOBIN [id number] 00:00:00* Test Item Value Reference Range Interpretation Comme nts HEMOGLOBIN A1c (test code = 60121) 5.2 % Dany CookTSH, THIRD [id number] 00:00:00* Test Item Value Reference Range Interpretation Comme nts TSH, THIRD GENERATION (test code = 2821) 2.970 UIU/ML Dany CookACUTE HEPATITIS [id number] 00:00:00* Test Item Value Reference Range Interpretation Comme nts HEPATITIS A IgM (test code = 07180) NON-REACTIVE HEPATITIS B CORE IgM (test c ode = 9426) NON-REACTIVE HEPATITIS B SURF AG (test co de = 7512) NON-REACTIVE HEPATITIS C ANTIBODY (test c ode = 4675) REACTIVE INTERPRETATION HEPATITIS A: (test code = 2552) (NOTE) INTERPRETATION HEPATITIS B: (test code = 58806) (NOTE) INTERPRETATION HEPATITIS C: (test code = 97543) (NOTE) Dany CookLIPID [id number] 00:00:00* Test Item Value Reference Range Interpretation Comme nts CHOLESTEROL (test code = 2210) 137 MG/DL TRIGLYCERIDES (test code = 2232) 55 MG/DL HDL CHOLESTEROL (test code = 2220) 71 MG/DL CALC LDL CHOL (test code = 2237) 52 MG/DL RISK RATIO LDL/HDL (test cod e = 2238) 0.73 RATIO Dany CookCOMPREHENSIVE METABOLIC [id number] 00:00:00* Test Item Value Reference Range Interpretation Comme nts GLUCOSE (test code = 2217) 89 MG/DL BUN (test code = 2208) 7 MG/DL CREATININE (test code = 2214) 0.62 MG/DL eGFR (2020 CKD-EPI) (test code = 77532) 105 ML/MIN/1.73 CALC BUN/CREAT (test code = 2235) 11 RATIO SODIUM (test code = 2231) 141 MEQ/L POTASSIUM (test code = 2228) 4.6 MEQ/L CHLORIDE (test code = 2215) 104 MEQ/L CARBON DIOXIDE (test code = 2206) 24 MEQ/L CALCIUM (test code = 2209) 9.5 MG/DL PROTEIN, TOTAL (test code = 2229) 8.2 G/DL ALBUMIN (test code = 2201) 4.2 G/DL CALC GLOBULIN (test code = 2240) 4.0 G/DL CALC A/G RATIO (test code = 2234) 1.1 RATIO BILIRUBIN, TOTAL (test code = 2207) 0.9 MG/DL ALKALINE PHOSPHATASE (test code = 2204) 125 U/L AST (test code = 2218) 209 U/L ALT (test code = 2219) 145 U/L Dany CookHEMOGLOBIN [id number] 00:00:00* Test Item Value Reference Range Interpretation Comme nts HEMOGLOBIN A1c (test code = 71593) 5.2 % Dany Ann JoeyTSH, THIRD [id number] 00:00:00* Test Item Value Reference Range Interpretation Comme nts TSH, THIRD GENERATION (test code = 2821) 2.970 UIU/ML Dany CookACUTE HEPATITIS [id number] 00:00:00* Test Item Value Reference Range Interpretation Comme nts HEPATITIS A IgM (test code = 16834) NON-REACTIVE HEPATITIS B CORE IgM (test c ode = 4644) NON-REACTIVE HEPATITIS B SURF AG (test co de = 2739) NON-REACTIVE HEPATITIS C ANTIBODY (test c ode = 4696) REACTIVE INTERPRETATION HEPATITIS A: (test code = 2552) (NOTE) INTERPRETATION HEPATITIS B: (test code = 28482) (NOTE) INTERPRETATION HEPATITIS C: (test code = 90282) (NOTE) Dany CookLIPID [id number] 00:00:00* Test Item Value Reference Range Interpretation Comme nts CHOLESTEROL (test code = 2210) 137 MG/DL TRIGLYCERIDES (test code = 2232) 55 MG/DL HDL CHOLESTEROL (test code = 2220) 71 MG/DL CALC LDL CHOL (test code = 2237) 52 MG/DL RISK RATIO LDL/HDL (test cod e = 2238) 0.73 RATIO Dany CookCOMPREHENSIVE METABOLIC [id number] 00:00:00* Test Item Value Reference Range Interpretation Comme nts GLUCOSE (test code = 2217) 89 MG/DL BUN (test code = 2208) 7 MG/DL CREATININE (test code = 2214) 0.62 MG/DL eGFR (2020 CKD-EPI) (test code = 03266) 105 ML/MIN/1.73 CALC BUN/CREAT (test code = 2235) 11 RATIO SODIUM (test code = 2231) 141 MEQ/L POTASSIUM (test code = 2228) 4.6 MEQ/L CHLORIDE (test code = 2215) 104 MEQ/L CARBON DIOXIDE (test code = 2206) 24 MEQ/L CALCIUM (test code = 2209) 9.5 MG/DL PROTEIN, TOTAL (test code = 2229) 8.2 G/DL ALBUMIN (test code = 2201) 4.2 G/DL CALC GLOBULIN (test code = 2240) 4.0 G/DL CALC A/G RATIO (test code = 2234) 1.1 RATIO BILIRUBIN, TOTAL (test code = 2207) 0.9 MG/DL ALKALINE PHOSPHATASE (test code = 2204) 125 U/L AST (test code = 2218) 209 U/L ALT (test code = 2219) 145 U/L Dany CookHEMOGLOBIN [id number] 00:00:00* Test Item Value Reference Range Interpretation Comme sheree HEMOGLOBIN A1c (test code = 32679) 5.2 % Dany CookTSH, THIRD [id number] 00:00:00* Test Item Value Reference Range Interpretation Comme sheree TSH, THIRD GENERATION (test code = 2821) 2.970 UIU/ML Dany CookACUTE HEPATITIS [id number] 00:00:00* Test Item Value Reference Range Interpretation Comme nts HEPATITIS A IgM (test code = 16741) NON-REACTIVE HEPATITIS B CORE IgM (test c ode = 4644) NON-REACTIVE HEPATITIS B SURF AG (test co de = 2739) NON-REACTIVE HEPATITIS C ANTIBODY (test c ode = 4675) REACTIVE INTERPRETATION HEPATITIS A: (test code = 2552) (NOTE) INTERPRETATION HEPATITIS B: (test code = 31662) (NOTE) INTERPRETATION HEPATITIS C: (test code = 72849) (NOTE) Dany CookLIPID [id number] 00:00:00* Test Item Value Reference Range Interpretation Comme nts CHOLESTEROL (test code = 2210) 137 MG/DL TRIGLYCERIDES (test code = 2232) 55 MG/DL HDL CHOLESTEROL (test code = 2220) 71 MG/DL CALC LDL CHOL (test code = 2237) 52 MG/DL RISK RATIO LDL/HDL (test cod e = 2238) 0.73 RATIO Dany CookCOMPREHENSIVE METABOLIC [id number] 00:00:00* Test Item Value Reference Range Interpretation Comme nts GLUCOSE (test code = 2217) 89 MG/DL BUN (test code = 2208) 7 MG/DL CREATININE (test code = 2214) 0.62 MG/DL eGFR (2020 CKD-EPI) (test code = 80526) 105 ML/MIN/1.73 CALC BUN/CREAT (test code = 2235) 11 RATIO SODIUM (test code = 2231) 141 MEQ/L POTASSIUM (test code = 2228) 4.6 MEQ/L CHLORIDE (test code = 2215) 104 MEQ/L CARBON DIOXIDE (test code = 2206) 24 MEQ/L CALCIUM (test code = 2209) 9.5 MG/DL PROTEIN, TOTAL (test code = 2229) 8.2 G/DL ALBUMIN (test code = 2201) 4.2 G/DL CALC GLOBULIN (test code = 2240) 4.0 G/DL CALC A/G RATIO (test code = 2234) 1.1 RATIO BILIRUBIN, TOTAL (test code = 2207) 0.9 MG/DL ALKALINE PHOSPHATASE (test code = 2204) 125 U/L AST (test code = 2218) 209 U/L ALT (test code = 2219) 145 U/L Dany CookHEMOGLOBIN [id number] 00:00:00* Test Item Value Reference Range Interpretation Comme nts HEMOGLOBIN A1c (test code = 25445) 5.2 % Dany RodrigesH, THIRD [id number] 00:00:00* Test Item Value Reference Range Interpretation Comme nts TSH, THIRD GENERATION (test code = 2821) 2.970 UIU/ML Dany CookACUTE HEPATITIS [id number] 00:00:00* Test Item Value Reference Range Interpretation Comme nts HEPATITIS A IgM (test code = 30892) NON-REACTIVE HEPATITIS B CORE IgM (test c ode = 4644) NON-REACTIVE HEPATITIS B SURF AG (test co de = 2739) NON-REACTIVE HEPATITIS C ANTIBODY (test c ode = 4694) REACTIVE INTERPRETATION HEPATITIS A: (test code = 2552) (NOTE) INTERPRETATION HEPATITIS B: (test code = 57192) (NOTE) INTERPRETATION HEPATITIS C: (test code = 05433) (NOTE) Dany CookLIPID [id number] 00:00:00* Test Item Value Reference Range Interpretation Comme nts CHOLESTEROL (test code = 2210) 137 MG/DL TRIGLYCERIDES (test code = 2232) 55 MG/DL HDL CHOLESTEROL (test code = 2220) 71 MG/DL CALC LDL CHOL (test code = 2237) 52 MG/DL RISK RATIO LDL/HDL (test cod e = 2238) 0.73 RATIO Dany CookCOMPREHENSIVE METABOLIC [id number] 00:00:00* Test Item Value Reference Range Interpretation Comme nts GLUCOSE (test code = 2217) 89 MG/DL BUN (test code = 2208) 7 MG/DL CREATININE (test code = 2214) 0.62 MG/DL eGFR (2020 CKD-EPI) (test code = 44905) 105 ML/MIN/1.73 CALC BUN/CREAT (test code = 2235) 11 RATIO SODIUM (test code = 223) 141 MEQ/L POTASSIUM (test code = 2228) 4.6 MEQ/L CHLORIDE (test code = 2215) 104 MEQ/L CARBON DIOXIDE (test code = 2206) 24 MEQ/L CALCIUM (test code = 2209) 9.5 MG/DL PROTEIN, TOTAL (test code = 222) 8.2 G/DL ALBUMIN (test code = 220) 4.2 G/DL CALC GLOBULIN (test code = 2240) 4.0 G/DL CALC A/G RATIO (test code = 2234) 1.1 RATIO BILIRUBIN, TOTAL (test code = 7) 0.9 MG/DL ALKALINE PHOSPHATASE (test code = 4) 125 U/L AST (test code = 2218) 209 U/L ALT (test code = 2219) 145 U/L Dany CookHEMOGLOBIN [id number] 00:00:00* Test Item Value Reference Range Interpretation Comme sheree HEMOGLOBIN A1c (test code = 34681) 5.2 % Dany CookTSH, THIRD [id number] 00:00:00* Test Item Value Reference Range Interpretation Comme [facility] TSH, THIRD GENERATION (test code = 2821) 2.970 UIU/ML Dany CookACUTE HEPATITIS [id number] 00:00:00* Test Item Value Reference Range Interpretation Comme nts HEPATITIS A IgM (test code = 00048) NON-REACTIVE HEPATITIS B CORE IgM (test c ode = 4644) NON-REACTIVE HEPATITIS B SURF AG (test co de = 2739) NON-REACTIVE HEPATITIS C ANTIBODY (test c ode = 4603) REACTIVE INTERPRETATION HEPATITIS A: (test code = 2552) (NOTE) INTERPRETATION HEPATITIS B: (test code = 23949) (NOTE) INTERPRETATION HEPATITIS C: (test code = 12178) (NOTE) Dany CookLIPID [id number] 00:00:00* Test Item Value Reference Range Interpretation Comme nts CHOLESTEROL (test code = 2210) 137 MG/DL TRIGLYCERIDES (test code = 2232) 55 MG/DL HDL CHOLESTEROL (test code = 2220) 71 MG/DL CALC LDL CHOL (test code = 2237) 52 MG/DL RISK RATIO LDL/HDL (test cod e = 2238) 0.73 RATIO Dany Cook Notes Date/Time Note Provider Source Dany Cook [facility]2025-03-25 00:00:00 Dany Lemus [facility]2024-12-23 00:00:00 Dany Lemus [facility]2024-12-02 00:00:00 Dany Lemus [facility]2024-11-18 00:00:00 Dany Lemus [facility]2024-08-19 00:00:00 Dany Lemus [facility]2024-08-08 00:00:00 Dany Lemus [facility]2024-07-02 00:00:00 Dany Lemus [facility]2023-10-05 00:00:00 Dany Lmeus [facility]2023-07-31 00:00:00 Dany Lemus [facility]2023-06-29 00:00:00 [facility]
[2025-04-30] MEDS ORDERED: GLUCAGON 1 MG/VIAL ONE ×2 (19:15→19:58)
[2025-04-30] MEDS ORDERED: MAGNESIUM SULFATE 1 gm IVPB 1 GM/100 ML BAG IV ONE (19:15)
[2025-04-30] MEDS ORDERED: METOCLOPRAMIDE 10 MG/2mL INJ ONE (19:15)
--- NOTE | 2025-04-30 20:21 | EDPHYS ---
Physician Documentation [facility] Name: Luis Sarmiento Age: 69 yrs Sex: Male : 1955 Arrival Date: 04/30/2025 Time: 18:58 Bed 6 Private MD: ED Physician Axel Barrett HPI: 04/30 19:11 This 69 yrs old Male presents to ER via Wheelchair with complaints of Choked/Choking, rn Vomiting, Foreign Body In Throat - porkchop. 19:12 Patient reports foreign body stuck in throat. Was eating pork chop and has gotten rn stuck. Reports this has happened multiple times but has never needed intervention and usually passes after well. Reports he vomited once. Feels warm body sensation mid neck. No difficulty breathing or coughing.. Historical: - Allergies: 19:06 No Known Drug Allergies; me1 - PMHx: 19:06 Hypertensive disorder; me1 - PSHx: 19:06 neck; me1 - Immunization history:: Adult Immunizations up to date. - Infectious Disease History:: Denies. - Social history:: Smoking status: Patient reports the use of cigarette tobacco products, smokes one-half pack cigarettes per day. - Family history:: not pertinent. - Hospitalizations: : No recent hospitalization is reported. ROS: 19:12 Constitutional: Negative for fever, chills, and weight loss, Cardiovascular: Negative rn for chest pain, palpitations, and edema, Respiratory: Negative for shortness of breath, cough, wheezing, and pleuritic chest pain, Abdomen/GI: Negative for abdominal pain, positive for vomiting x 1 Exam: 19:12 Constitutional: This is a well developed, well nourished patient who is awake, alert, rn appears uncomfortable, has emesis bag ENT: No stridor Cardiovascular: Regular rate and rhythm. No pulse deficits. Respiratory: Speaking full sentences, unlabored. No increased work of breathing, no retractions or nasal flaring. Vital Signs: 19:05 BP 138 / 74; Pulse 90; Resp 19; Temp 98.2; Pulse Ox 99% ; Weight 65.77 kg; Height 5 ft. me1 11 in. ; Pain 5/10; 20:18 BP 133 / 80; Pulse 87; Resp 17; Pulse Ox 99% on R/A; lg3 20:53 BP 135 / 77; Pulse 77; Resp 18; Temp 98.2; Pulse Ox 100% ; Pain 0/10; bm8 19:05 Body Mass Index 20.22 (65.77 kg, 180.34 cm) me1 19:05 Pain Scale: Adult me1 20:53 Pain Scale: Adult bm8 [place] Coma Score: 19:09 Eye Response: spontaneous(4). Motor Response: obeys commands(6). Verbal Response: bm8 oriented(5). Total: 15. MDM: 19:07 Medical Screening Exam initiated rn 20:10 Differential diagnosis: Esophageal foreign body, food impaction. Data reviewed: vital rn signs, nurses notes. ED course: No response to initial medication. Glucagon repeated. If this does not work patient will need to be transferred as we do not have GI for endoscopic removal.. 20:19 Consideration of Admission/Observation Patient was admitted/placed on observation. rn Escalation of care including admission/observation considered. Counseling: I had a detailed discussion with the patient and/or guardian regarding the historical points, exam findings, and any diagnostic results supporting the discharge/admit diagnosis, the need [facility] another [facility]. Response to treatment: There is no appreciated change of the patient's symptoms at this time. ED course: Medication did not help. Still has foreign body sensation in esophagus. No GI coverage here so we will transfer. 20:45 ED course: Initiated transfer to [facility], hospitalist requested chest x-ray prior to legal internship to rule out esophageal rupture.. 20:51 ED course: While waiting for transfer and chest x-ray patient calls me back in room and rn states fluid passed. Is able to tolerate p.o. now and feels back to baseline. Is happy and wants to be discharged. Will cancel transfer. 04/30 19:10 Order name: IV Start; Complete Time: 19:14 rn Administered Medications: 19:29 Drug: Glucagon IVP 1 mg IVP once Route: IVP; Site: right forearm; lg3 19:55 Follow up: Response: No adverse reaction; No change in condition lg3 19:29 Drug: Magnesium Sulfate IVPB 1 grams IVPB once over 1 hrs Route: IVPB; Infused Over: 1 lg3 hrs; Site: right forearm; 20:56 Follow up: Response: No adverse reaction; IV Status: Completed infusion bm8 19:29 Drug: metoCLOPramide IVP 5 mg IVP once; over 1 to 2 minutes Route: IVP; Site: right lg3 forearm; 19:54 Follow up: Response: No adverse reaction lg3 20:07 Drug: Glucagon IVP 1 mg IVP once Route: IVP; Site: right antecubital; lg3 20:56 Follow up: Response: No adverse reaction bm8 Disposition Summary: 04/30/25 20:52 Discharge Ordered Notes: Location: Home rn Problem: new(04/30/25 20:52) rn Symptoms: have improved(04/30/25 20:52) rn Condition: Stable(04/30/25 20:52) rn Diagnosis - Food in esophagus - Food impaction, resolved(04/30/25 20:52) rn Followup: rn - With: Private Physician - When: As needed - Reason: Recheck today's complaints, Re-evaluation by your physician Discharge Instructions: - Discharge Summary Sheet rn - Esophageal Stricture rn Forms: - Medication Reconciliation Form rn - Antibiotic partner marketing intern - Prescription Opioid Use rn - Patient Portal Instructions rn - Leadership Thank You Letter rn Signatures: Dispatcher [employer] Axel Jade MD MD rn Able, Lacie, RN RN lg3 Francesca Marroquin RN RN me1 Randal Ziegler RN bm8 Corrections: (The following items were deleted from the chart) 19:07 19:06 PSHx: None; me1 me1 20:45 20:45 Chest Single View+RAD.RAD.BRZ ordered. EDFL EDMS :52 20:20 rn rn :52 20:20 [facility] rn rn :52 20:20 Higher level of care rn rn :52 20:20 Stable rn rn :52 20:20 new rn rn :52 20:20 are unchanged rn rn :52 20:20 Food in esophagus - Food impaction rn rn
--- NOTE | 2025-04-30 20:21 | ER ---
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 me1 Vomiting in triage. Coronavirus screen: Vaccine status: Patient reports receiving the 2nd dose of the covid vaccine. Ebola Screen: No symptoms or risks identified at this time. Initial Sepsis Screen: Does the patient meet any 2 criteria? HR > 90 bpm. Does the patient have a suspected source of infection? No. Patient's initial sepsis screen is negative. Risk Assessment: Do you want to hurt yourself or someone else? Patient reports no desire to harm self or others. Onset of symptoms was April 30, 2025 at 18:20. 19:05 Method Of Arrival: Wheelchair me1 19:05 Acuity: SANDHYA 3 me1 Historical: - Allergies: 19:06 No Known Drug Allergies; me1 - PMHx: 19:06 Hypertensive disorder; me1 - PSHx: 19:06 neck; me1 - Immunization history:: Adult Immunizations up to date. - Infectious Disease History:: Denies. - Social history:: Smoking status: Patient reports the use of cigarette tobacco products, smokes one-half pack cigarettes per day. - Family history:: not pertinent. - Hospitalizations: : No recent hospitalization is reported. Screenin:09 [facility] ED Fall Risk Assessment (Adult) History of falling in the last 3 months, bm8 including since admission No falls in past 3 months (0 pts) Confusion or Disorientation No (0 pts) Intoxicated or Sedated No (0 pts) Impaired Gait No (0 pts) Mobility Assist Device Used No (0 pt) Altered Elimination No (0 pt) Score/Fall Risk Level 0 - 2 = Low Risk Oriented to surroundings, Maintained a safe environment, Educated pt \T\ family on fall prevention, incl call for assistance when getting out of bed, Assessed \T\ reinforced patient's understanding of fall precautions, Hourly rounding (assess needs \T\ fall precautionary measures) done, Used ambulatory aids as needed (educated on \T\ assisted with), Used gait belt as appropriate. Abuse screen: Denies threats or abuse. Tuberculosis screening: No symptoms or risk factors identified. 20:53 Nutritional screening: No deficits noted. bm8 Assessment: 19:09 General: Appears distressed, uncomfortable, Behavior is calm, cooperative, appropriate bm8 for age. Pain: Complains of pain in chest and abdomen Pain currently is 7 out of 10 on a pain scale. Neuro: No deficits noted. Level of Consciousness is awake, alert, obeys commands, Oriented to person, place, time, situation, Appropriate for age. Cardiovascular: Reports chest pain, due to food bolus in esophagus. GI: Abdomen is flat, non-distended, Bowel sounds present X 4 quads. Reports upper abdominal pain, nausea, Pain is 7 out of 10 on a pain scale. vomiting. 20:18 Reassessment: Patient appears in no apparent distress at this time. No changes from lg3 previously documented assessment. Patient and/or family updated on plan of care and expected duration. Pain level reassessed. Patient is alert, oriented x 3, equal unlabored respirations, skin warm/dry/pink. Patient states symptoms have not improved. 20:53 Reassessment: Patient appears in no apparent distress at this time. Patient and/or bm8 family updated on plan of care and expected duration. Pain level reassessed. Patient is alert, oriented x 3, equal unlabored respirations, skin warm/dry/pink. pt reports that the bolus suddenly cleared and he is feeling much better. Pt demonstrated that he was able to swallow water without difficulty. Provider notified. Provider reexamined pt and again pt demonstrated his ability to swallow without difficulty. Patient denies pain at this time. Patient states feeling better. Patient states symptoms have improved. Vital Signs: 19:05 BP 138 / 74; Pulse 90; Resp 19; Temp 98.2; Pulse Ox 99% ; Weight 65.77 kg; Height 5 ft. me1 11 in. ; Pain 5/10; 20:18 BP 133 / 80; Pulse 87; Resp 17; Pulse Ox 99% on R/A; lg3 20:53 BP 135 / 77; Pulse 77; Resp 18; Temp 98.2; Pulse Ox 100% ; Pain 0/10; bm8 19:05 Body Mass Index 20.22 (65.77 kg, 180.34 cm) me1 19:05 Pain Scale: Adult me1 20:53 Pain Scale: Adult bm8 [place] Coma Score: 19:09 Eye Response: spontaneous(4). Motor Response: obeys commands(6). Verbal Response: bm8 oriented(5). Total: 15. ED Course: 18:59 Patient arrived in ED. al6 19:06 Triage completed. me1 19:06 Arm band placed on Patient placed in an exam room. me1 19:07 Axel Barrett MD is Attending Physician. rn 19:08 Randal Ziegler RN is Primary Nurse. bm8 19:09 Patient has correct armband on for positive identification. Bed in low position. Call bm8 light in reach. Side rails up X 1. Client placed on continuous cardiac and pulse oximetry monitoring. NIBP monitoring applied. Pulse ox on. NIBP on. Door closed. Noise minimized. Warm blanket given. Pillow given. Verbal reassurance given. Head of bed elevated. 19:09 No provider procedures requiring assistance completed. Inserted saline lock: 18 gauge bm8 in right forearm, using aseptic technique. Blood collected. Flushed with 10 mL NS. 20:53 Provided Education on: post er care. bm8 20:53 IV discontinued, intact, bleeding controlled, No redness/swelling at site. Pressure bm8 dressing applied. Administered Medications: 19:29 Drug: Glucagon IVP 1 mg IVP once Route: IVP; Site: right forearm; lg3 19:55 Follow up: Response: No adverse reaction; No change in condition lg3 19:29 Drug: Magnesium Sulfate IVPB 1 grams IVPB once over 1 hrs Route: IVPB; Infused Over: 1 lg3 hrs; Site: right forearm; 20:56 Follow up: Response: No adverse reaction; IV Status: Completed infusion bm8 19:29 Drug: metoCLOPramide IVP 5 mg IVP once; over 1 to 2 minutes Route: IVP; Site: right lg3 forearm; 19:54 Follow up: Response: No adverse reaction lg3 20:07 Drug: Glucagon IVP 1 mg IVP once Route: IVP; Site: right antecubital; lg3 20:56 Follow up: Response: No adverse reaction bm8 Medication: 19:09 VIS not applicable for this client. bm8 Outcome: 20:20 ER care complete, transfer ordered by . rn 20:52 Discharge ordered by . rn 20:53 Discharged to home ambulatory, with family, bm8 20:53 Condition: stable 20:53 Discharge instructions given to patient, Instructed on discharge instructions, follow up and referral plans. no drinking with medication, no driving heavy equipment, medication usage, safety practices, Demonstrated understanding of instructions, follow-up care, medications, 20:57 Patient left the ED. bm8 Signatures: Axel Barrett MD MD rn Able, Lacie RN RN lg3 Francesca Marroquin RN RN me1 Randal Ziegler RN RN bm8 Jennifer Adkins6 Corrections: (The following items were deleted from the chart) 19:07 19:06 PSHx: None; me1 me1 20:56 20:53 Reassessment: pt reports that the bolus suddenly cleared and he is feeling much bm8 better. Pt demonstrated that he was able to swallow water without difficulty. Provider notified. Provider reexamined pt and again pt demonstrated his ability to swallow without difficulty. bm8
[2025-04-30 21:28] VITALS: BP 138/74; TEMP 98.2; O2SAT 99
== END 2025-04-30 20:57 | disposition home or self-care (01) ==
LOC: ER 18:58
DX: T18.128A Food in esophagus causing other injury, initial encounter (principal); I10 Essential (primary) hypertension; F17.210 Nicotine dependence, cigarettes, uncomplicated
CPT/HCPCS: 99284; J1610 ×2; J3475; J2765